=== PATIENT | male | born 1955 | race Caucasian/White ===

== ENCOUNTER 2018-09-20 16:11 | Emergency (ER) | payer MEDICARE ==
--- NOTE | 2018-09-20 17:03 | ED ---
General Adult HPI - General Chief complaint: ENT Stated complaint: hyperglycemia Time Seen by Provider: 09/20/18 16:30 Source: patient, EMS Mode of arrival: EMS Limitations: no limitations - History of Present Illness Initial comments: The patient is a 63-year-old male with past medical history of left second toe osteomyelitis and bladder cancer who presents to the emergency department from his podiatry office. He states that upon walking into the office today he had the sensation that his ears "needed to pop". He has had this sensation multiple times over the past few weeks. He felt as if he couldn't hear and therefore the office staff got acutely concerned for altered mental status. The patient reports that they called EMS even though the patient did not feel this was necessary. EMS arrived and checked the patient's sugar. He was found to be in the 300s. The patient does report to a history of diabetes and is insulin- dependent. He states that he forgot to take his insulin last night. Reports that elevated blood sugars are not abnormal for him. He states that when EMS arrived that his ears did pop and he felt better. He did not want to come to the emergency department and it took several individuals to convince him to come. He is denying any symptoms at this time. States he is completely pain- free. He denies any headaches or visual changes. He denies any unilateral numbness or weakness. There is no slurred speech or facial droop. The patient has had a history of stroke in the past and has no residual deficits. He denies any ear pain or discharge. He denies any sinus pain or pressure. Denies sore throat, neck pain or stiffness. Denies any chest pain or shortness of breath. The patient reports great improvement in his left second toe osteomyelitis. No fevers or chills. There are no other alleviating, precipitating or modifying factors - Related Data Home Medications Medication Instructions Recorded Confirmed ALPRAZolam [Xanax] 1 mg PO HS PRN 11/09/15 09/20/18 traZODone HCL [Desyrel] 300 mg PO HS 11/09/15 09/20/18 ALPRAZolam [Xanax] 0.5 mg PO BID@0900,1900 09/20/18 09/20/18 Atorvastatin [Lipitor] 40 mg PO HS 09/20/18 09/20/18 Doxycycline Hyclate [Vibramycin] 100 mg PO BID 09/20/18 09/20/18 Lisinopril [Prinivil] 5 mg PO DAILY 09/20/18 09/20/18 Metoprolol Succinate [Toprol XL] 200 mg PO DAILY 09/20/18 09/20/18 Omeprazole [PriLOSEC] 20 mg PO DAILY 09/20/18 09/20/18 amLODIPine [Norvasc] 10 mg PO DAILY 09/20/18 09/20/18 Allergies Allergy/AdvReac Type Severity Reaction Status Date / Time No Known Allergies Allergy Verified 09/20/18 17:40 Review of Systems ROS Statement: Those systems with pertinent positive or pertinent negative responses have been documented in the HPI. ROS Other: All systems not noted in ROS Statement are negative. Past Medical History Past Medical History: CVA/TIA, Diabetes Mellitus, GERD/Reflux, Hyperlipidemia, Hypertension, Myocardial Infarction (ME) Additional Past Medical History / Comment(s): cataracts pacemaker History of Any Multi-Drug Resistant Organisms: None Reported Past Surgical History: Cholecystectomy Past Psychological History: No Psychological Hx Reported Smoking Status: Former smoker Past Alcohol Use History: Rare Past Drug Use History: None Reported General Exam Limitations: no limitations General appearance: alert, in no apparent distress Head exam: Present: atraumatic, normocephalic, normal inspection Eye exam: Present: normal appearance, PERRL, EOMI. Absent: scleral icterus, conjunctival injection, periorbital swelling ENT exam: Present: normal exam, mucous membranes moist Neck exam: Present: normal inspection. Absent: tenderness, meningismus, lymphadenopathy Respiratory exam: Present: normal lung sounds bilaterally. Absent: respiratory distress, wheezes, rales, rhonchi, stridor Cardiovascular Exam: Present: regular rate, normal rhythm, normal heart sounds. Absent: systolic murmur, diastolic murmur, rubs, gallop, clicks GI/Abdominal exam: Present: soft, normal bowel sounds, other (b/l percutanous drains from the kidneys are c/d/i). Absent: distended, tenderness, guarding, rebound, rigid Extremities exam: Present: normal inspection, full ROM, normal capillary refill, other (small non-oozing, well healing ulcer to the bottom of the left second toe measuring 1.5 x 1.0 cm). Absent: tenderness, pedal edema, joint swelling, calf tenderness Back exam: Present: normal inspection Neurological exam: Present: alert, oriented X3, CN II-XII intact Psychiatric exam: Present: normal affect, normal mood Skin exam: Present: warm, dry, intact, normal color. Absent: rash Course Vital Signs 09/20/18 09/20/18 16:21 19:59 Temperature 97.4 F L 98.3 F Pulse Rate 79 63 Respiratory 18 17 Rate Blood Pressure 145/64 137/71 O2 Sat by Pulse 98 98 Oximetry EKG Findings - EKG Comments: EKG Findings:: EKG demonstrates atrial fibrillation with a ventricular rate of 72. QRS 134. QTC 473. There is a left axis deviation left bundle branch block. No sgarbossa criteria. Medical Decision Making - Medical Decision Making Upon arrival the patient is placed into room 24. He is hooked up to continuous pulse ox and cardiac monitoring. A thorough history and physical exam was performed. The patient states he feels asymptomatic at this time. He is requesting me to look in his ears as he does report to recent muffled hearing. The patient does not demonstrate any signs of stroke at this time. I did recom mend laboratory studies and an EKG for which the patient did agree. I also recommended CT imaging of the patient's head to evaluate the patient's eustachian tubes. The patient refused and he is of sound mind and capable of making his own decisions. Upon return of the results they're discussed the patient. I did discuss diagnosis, differential and treatment options. I do believe the patient would benefit from seeing an ear nose and throat doctor. Patient continues to remain symptom free and is requesting to go home at this time. Laboratory studies did not demonstrate any signs of DKA. The patient will be discharged home and is given follow-up information for Dr. Suh. He is to follow up in office for his hearing changes. If he has any new or worsening symptoms she should return to the emergency room. Patient was in agreement treatment plan and discharged home in stable condition - Differential Diagnosis acute sinus pressure, acute hyperglycemia - Lab Data Result diagrams: 09/20/18 18:10 09/20/18 18:10 Lab Results 09/20/18 09/20/18 09/20/18 Range/Units 18:10 18:10 18:10 WBC 9.5 (3.8-10.6) k/uL RBC 3.47 L (4.30-5.90) m/uL Hgb 9.8 L (13.0-17.5) gm/dL Hct 30.7 L (39.0-53.0) % MCV 88.6 (80.0-100.0) fL MCH 28.2 (25.0-35.0) pg MCHC 31.9 (31.0-37.0) g/dL RDW 15.8 H (11.5-15.5) % Plt Count 210 (150-450) k/uL Neutrophils % 88 % Lymphocytes % 4 % Monocytes % 5 % Eosinophils % 1 % Basophils % 0 % Neutrophils # 8.4 H (1.3-7.7) k/uL Lymphocytes # 0.4 L (1.0-4.8) k/uL Monocytes # 0.5 (0-1.0) k/uL Eosinophils # 0.1 (0-0.7) k/uL Basophils # 0.0 (0-0.2) k/uL Hypochromasia Slight Sodium 139 (137-145) mmol/L Potassium 4.4 (3.5-5.1) mmol/L Chloride 101 (98-107) mmol/L Carbon Dioxide 29 (22-30) mmol/L Anion Gap 9 mmol/L BUN 20 (9-20) mg/dL Creatinine 1.28 H (0.66-1.25) mg/dL Est GFR (CKD-EPI)AfAm 68 (>60 ml/min/1.73 sqM) Est GFR (CKD-EPI)NonAf 58 (>60 ml/min/1.73 sqM) Glucose 318 H (74-99) mg/dL Plasma Lactic Acid Stan 1.1 (0.7-2.0) mmol/L Calcium 8.6 (8.4-10.2) mg/dL Total Bilirubin 1.1 (0.2-1.3) mg/dL AST 12 L (17-59) U/L ALT 19 L (21-72) U/L Alkaline Phosphatase 128 H (38-126) U/L Total Protein 6.1 L (6.3-8.2) g/dL Albumin 3.4 L (3.5-5.0) g/dL TSH 4.450 (0.465-4.680) mIU/L Urine Color Urine Appearance (Clear) Urine pH (5.0-8.0) Ur Specific Cory (1.001-1.035) Urine Protein (Negative) Urine Glucose (UA) (Negative) Urine Ketones (Negative) Urine Blood (Negative) Urine Nitrite (Negative) Urine Bilirubin (Negative) Urine Urobilinogen (<2.0) mg/dL Ur Leukocyte Esterase (Negative) Urine RBC (0-5) /hpf Urine WBC (0-5) /hpf Urine Bacteria (None) /hpf Hyaline Casts (0-2) /lpf Urine Mucus (None) /hpf 09/20/18 Range/Units 18:10 WBC (3.8-10.6) k/uL RBC (4.30-5.90) m/uL Hgb (13.0-17.5) gm/dL Hct (39.0-53.0) % MCV (80.0-100.0) fL MCH (25.0-35.0) pg MCHC (31.0-37.0) g/dL RDW (11.5-15.5) % Plt Count (150-450) k/uL Neutrophils % % Lymphocytes % % Monocytes % % Eosinophils % % Basophils % % Neutrophils # (1.3-7.7) k/uL Lymphocytes # (1.0-4.8) k/uL Monocytes # (0-1.0) k/uL Eosinophils # (0-0.7) k/uL Basophils # (0-0.2) k/uL Hypochromasia Sodium (137-145) mmol/L Potassium (3.5-5.1) mmol/L Chloride (98-107) mmol/L Carbon Dioxide (22-30) mmol/L Anion Gap mmol/L BUN (9-20) mg/dL Creatinine (0.66-1.25) mg/dL Est GFR (CKD-EPI)AfAm (>60 ml/min/1.73 sqM) Est GFR (CKD-EPI)NonAf (>60 ml/min/1.73 sqM) Glucose (74-99) mg/dL Plasma Lactic Acid Stan (0.7-2.0) mmol/L Calcium (8.4-10.2) mg/dL Total Bilirubin (0.2-1.3) mg/dL AST (17-59) U/L ALT (21-72) U/L Alkaline Phosphatase (38-126) U/L Total Protein (6.3-8.2) g/dL Albumin (3.5-5.0) g/dL TSH (0.465-4.680) mIU/L Urine Color Yellow Urine Appearance Cloudy (Clear) Urine pH 7.0 (5.0-8.0) Ur Specific Cory 1.011 (1.001-1.035) Urine Protein 3+ H (Negative) Urine Glucose (UA) 3+ H (Negative) Urine Ketones Negative (Negative) Urine Blood Moderate H (Negative) Urine Nitrite Negative (Negative) Urine Bilirubin Negative (Negative) Urine Urobilinogen 2.0 (<2.0) mg/dL Ur Leukocyte Esterase Moderate H (Negative) Urine RBC 103 H (0-5) /hpf Urine WBC 24 H (0-5) /hpf Urine Bacteria Rare H (None) /hpf Hyaline Casts 1 (0-2) /lpf Urine Mucus Rare H (None) /hpf Disposition Clinical Impression: Sinus pressure, Hyperglycemia Disposition: HOME SELF-CARE Condition: Stable Instructions (If sedation given, give patient instructions): Earache (ED) Additional Instructions: Please follow-up with your primary care doctor in 1-2 days. Check your sugars 4 times daily. Return to the emergency room for any new or worsening symptoms Is patient prescribed a controlled substance at d/c from ED?: No Referrals: Narendra Izquierdo MD [Primary Care Provider] - 1-2 days Juan Luis Suh MD [STAFF PHYSICIAN] - 1-2 days Time of Disposition: 19:20
[2018-09-20 18:23] LABS: Basophils % (A) 0 %; Eosinophils # (A) 0.1 k/uL (0-0.7); Eosinophils % (A) 1 %; HCT 30.7 % (39.0-53.0); HGB 9.8 gm/dL (13.0-17.5); Hypochromasia Slight; Lymphocytes # (A) 0.4 k/uL (1.0-4.8); Lymphocytes % (A) 4 %; MCH 28.2 pg (25.0-35.0); MCHC 31.9 g/dL (31.0-37.0); MCV 88.6 fL (80.0-100.0); Monocytes # (A) 0.5 k/uL (0-1.0); Monocytes % (A) 5 %; Neutrophils # (A) 8.4 k/uL (1.3-7.7); Neutrophils % (A) 88 %; Platelet Count 210 k/uL (150-450); RBC 3.47 m/uL (4.30-5.90); RDW 15.8 % (11.5-15.5); WBC 9.5 k/uL (3.8-10.6)
[2018-09-20 18:31] LABS: Albumin 3.4 g/dL (3.5-5.0); Calcium 8.6 mg/dL (8.4-10.2); Potassium 4.4 mmol/L (3.5-5.1); Total Bilirubin 1.1 mg/dL (0.2-1.3); Total Protein 6.1 g/dL (6.3-8.2)
[2018-09-20 18:35] LABS: Appearance,Urine Cloudy (Clear); Bacteria,Urine Rare /hpf; Bilirubin,Urine Negative (Negative); Blood,Urine Moderate (Negative); Color,Urine Yellow; Glucose,Urine (UA) 3+ (Negative); Hyaline Casts,Urine 1 /lpf (0-2); Ketones,Urine Negative (Negative); Leukocyte Esterase,Urine Moderate (Negative); Mucus,Urine Rare /hpf; Nitrite,Urine Negative (Negative); Protein,Urine 3+ (Negative); RBC,Urine 103 /hpf (0-5); Specific Gravity,Urine 1.011 (1.001-1.035); WBC,Urine 24 /hpf (0-5)
[2018-09-20 20:00] VITALS: BP 137/71; PULSE 63; RESP 17; TEMP 98.3
== END 2018-09-20 20:00 | disposition home or self-care (01) ==
LOC: EC 16:11
DX: E11.65 Type 2 diabetes mellitus with hyperglycemia (principal); J34.89 Other specified disorders of nose and nasal sinuses; E11.69 Type 2 diabetes mellitus with other specified complication; M86.9 Osteomyelitis, unspecified; K21.9 Gastro-esophageal reflux disease without esophagitis; E78.5 Hyperlipidemia, unspecified; I10 Essential (primary) hypertension; I25.2 Old myocardial infarction; Z87.891 Personal history of nicotine dependence; Z79.4 Long term (current) use of insulin; Z79.899 Other long term (current) drug therapy; Z85.51 Personal history of malignant neoplasm of bladder; Z86.73 Personal history of transient ischemic attack (TIA), and cerebral infarction without residual deficits; Z95.0 Presence of cardiac pacemaker; Z53.20 Procedure and treatment not carried out because of patient's decision for unspecified reasons
CPT/HCPCS: 36415; 80053; 81001; 83605; 84443; 85025; 93005; 99285

== ENCOUNTER 2018-11-04 11:52 | Inpatient (IN) | payer MEDICARE ==
[2018-11-04] MEDS ORDERED: ACETAMINOPHEN TAB 500 MG TAB PO STA (12:12)
[2018-11-04] MEDS ORDERED: IBUPROFEN 600 MG TAB PO STA (12:12)
--- NOTE | 2018-11-04 12:16 | ED ---
General Adult HPI - General Chief complaint: Fever Stated complaint: HYPOTENSION Time Seen by Provider: 11/04/18 12:00 Source: patient, EMS, RN notes reviewed Mode of arrival: EMS Limitations: no limitations - History of Present Illness Initial comments: This is a 63-year-old male who has a past medical history significant for bladder cancer and bilateral nephrostomy tubes. Patient was at home and according to the visiting nurse was confused and weak and he got up and it even realize the nephrostomy tube was caught and pulled right out on the right side. Patient is alert and oriented 3 but he is somewhat slow to respond it is not 100% sure why he is here. Patient does have a temperature. Patient denies any complaints currently. Patient denies headache patient denies numbness weakness. Patient denies chest pain difficult breathing shortness of breath per patient denies any abdominal pain. Patient denies nausea vomiting diarrhea. Patient states he does not want back [facility]. Patient was unaware that he had a temperature. No one else is with the patient to give any further history. - Related Data Home Medications Medication Instructions Recorded Confirmed traZODone HCL [Desyrel] 300 mg PO HS 11/09/15 11/04/18 ALPRAZolam [Xanax] 0.5 mg PO TID 09/20/18 11/04/18 Atorvastatin [Lipitor] 40 mg PO HS 09/20/18 11/04/18 Metoprolol Succinate [Toprol XL] 200 mg PO DAILY 09/20/18 11/04/18 Omeprazole [PriLOSEC] 20 mg PO DAILY 09/20/18 11/04/18 amLODIPine [Norvasc] 10 mg PO DAILY 09/20/18 11/04/18 Acetaminophen Tab [Tylenol Tab] 650 mg PO Q6H PRN 11/04/18 11/04/18 Aspirin EC [Ecotrin Low Dose] 81 mg PO DAILY 11/04/18 11/04/18 Docusate [Colace] 100 mg PO DAILY PRN 11/04/18 11/04/18 Enoxaparin Sodium 100 mg SQ DAILY 11/04/18 11/04/18 INSULIN LISPRO (HumaLOG) [HumaLOG] See Protocol SQ AC-TID 11/04/18 11/04/18 Insulin Glargine [Lantus] 15 unit SQ HS 11/04/18 11/04/18 Magnesium Oxide [Mag-Ox] 400 mg PO BID 11/04/18 11/04/18 Mesalamine [Canasa] 1,000 mg RECTAL BID 11/04/18 11/04/18 Nitroglycerin Sl Tabs [Nitrostat] 0.4 mg SUBLINGUAL Q5M PRN 11/04/18 11/04/18 Nutrisource Fiber 4 gram PO BID 11/04/18 11/04/18 Allergies Allergy/AdvReac Type Severity Reaction Status Date / Time No Known Allergies Allergy Verified 11/04/18 12:32 Review of Systems ROS Statement: Those systems with pertinent positive or pertinent negative responses have been documented in the HPI. ROS Other: All systems not noted in ROS Statement are negative. Past Medical History Past Medical History: CVA/TIA, Diabetes Mellitus, GERD/Reflux, Hyperlipidemia, Hypertension, Myocardial Infarction (SD) Additional Past Medical History / Comment(s): cataracts pacemaker History of Any Multi-Drug Resistant Organisms: None Reported Past Surgical History: Cholecystectomy, Pacemaker Additional Past Surgical History / Comment(s): nephrostomy tube x2 Past Psychological History: No Psychological Hx Reported Smoking Status: Former smoker Past Alcohol Use History: Rare Past Drug Use History: None Reported General Exam - General Exam Comments Initial Comments: GENERAL: Patient is well-developed and well-nourished. Patient is nontoxic and well- hydrated and is in mild distress. ENT: Neck is soft and supple. No significant lymphadenopathy is noted. Oropharynx is clear. Moist mucous membranes. Neck has full range of motion without eliciting any pain. EYES: The sclera were anicteric and conjunctiva were pink and moist. Extraocular movements were intact and pupils were equal round and reactive to light. Eyelids were unremarkable. PULMONARY: Unlabored respirations. Good breath sounds bilaterally. No audible rales rhonchi or wheezing was noted. CARDIOVASCULAR: There is a regular rate and rhythm without any murmurs gallops or rubs. ABDOMEN: Soft and nontender with normal bowel sounds. No palpable organomegaly was noted. There is no palpable pulsatile mass. SKIN: Skin is clear with no lesions or rashes and otherwise unremarkable. Patient has an opening on the right for nephrostomy tube which is no longer in place NEUROLOGIC: Patient is alert and oriented x3 but is slow to respond.. Cranial nerves II through XII are grossly intact. Motor and sensory are also intact. Normal speech, volume and content. Symmetrical smile. MUSCULOSKELETAL: Normal extremities with adequate strength and full range of motion. LYMPHATICS: No significant lymphadenopathy is noted PSYCHIATRIC: Normal psychiatric evaluation. Limitations: no limitations Course Vital Signs 11/04/18 11/04/18 11/04/18 12:04 13:33 14:13 Temperature 101.2 F H 99.6 F Pulse Rate 74 59 L 70 Respiratory 18 16 18 Rate Blood Pressure 144/72 116/68 112/78 O2 Sat by Pulse 96 8 L 96 Oximetry Medical Decision Making - Medical Decision Making Patient's ideal body weight for his height is 90 kg. EKG shows atrial fibrillation versus flutter with a couple PVCs at a rate of 83 bpm QRS is 132 QT interval 440 QTC is 517. Patient's EKG shows no ST segment elevation or depression. I gave the patient Rocephin. I spoke with Dr. Sanchez he agreed to admit the patient admitted the patient wrote admitting orders. Patient also received 2 L of fluid in the emergency department and I ordered a third. I spoke with Dr. Diallo and he agreed that he could replace the nephrostomy tube. I spoke with Dr. Falk and he agreed he could be on consult. - Lab Data Result diagrams: 11/04/18 12:35 11/04/18 12:35 Lab Results 11/04/18 11/04/18 11/04/18 Range/Units 12:35 12:35 12:35 WBC 14.2 H (3.8-10.6) k/uL RBC 3.86 L (4.30-5.90) m/uL Hgb 10.8 L (13.0-17.5) gm/dL Hct 30.8 L (39.0-53.0) % MCV 79.7 L D (80.0-100.0) fL MCH 28.0 (25.0-35.0) pg MCHC 35.1 (31.0-37.0) g/dL RDW 15.0 (11.5-15.5) % Plt Count 181 (150-450) k/uL Neutrophils % 93 % Lymphocytes % 2 % Monocytes % 4 % Eosinophils % 0 % Basophils % 1 % Neutrophils # 13.2 H (1.3-7.7) k/uL Lymphocytes # 0.2 L (1.0-4.8) k/uL Monocytes # 0.6 (0-1.0) k/uL Eosinophils # 0.1 (0-0.7) k/uL Basophils # 0.1 (0-0.2) k/uL Poikilocytosis Slight PT (9.0-12.0) sec INR (<1.2) APTT (22.0-30.0) sec Sodium 135 L (137-145) mmol/L Potassium 3.0 L (3.5-5.1) mmol/L Chloride 96 L (98-107) mmol/L Carbon Dioxide 26 (22-30) mmol/L Anion Gap 13 mmol/L BUN 17 (9-20) mg/dL Creatinine 1.36 H (0.66-1.25) mg/dL Est GFR (CKD-EPI)AfAm 63 (>60 ml/min/1.73 sqM) Est GFR (CKD-EPI)NonAf 54 (>60 ml/min/1.73 sqM) Glucose 354 H (74-99) mg/dL Plasma Lactic Acid Stan 1.5 (0.7-2.0) mmol/L Calcium 7.8 L (8.4-10.2) mg/dL Total Bilirubin 1.6 H (0.2-1.3) mg/dL AST 14 L (17-59) U/L ALT 15 L (21-72) U/L Alkaline Phosphatase 204 H (38-126) U/L Troponin I (0.000-0.034) ng/mL Total Protein 5.9 L (6.3-8.2) g/dL Albumin 3.1 L (3.5-5.0) g/dL Urine Color Urine Appearance (Clear) Urine pH (5.0-8.0) Ur Specific Dillon (1.001-1.035) Urine Protein (Negative) Urine Glucose (UA) (Negative) Urine Ketones (Negative) Urine Blood (Negative) Urine Nitrite (Negative) Urine Bilirubin (Negative) Urine Urobilinogen (<2.0) mg/dL Ur Leukocyte Esterase (Negative) Urine RBC (0-5) /hpf Urine WBC (0-5) /hpf Urine WBC Clumps (None) /hpf Urine Bacteria (None) /hpf Hyaline Casts (0-2) /lpf Urine Mucus (None) /hpf Ur Yeast w Hyphae (None) /hpf Urine Yeast (Budding) (None) /hpf Influenza Type A RNA (Not Detectd) Influenza Type B (PCR) (Not Detectd) 11/04/18 11/04/18 11/04/18 Range/Units 12:35 12:35 12:35 WBC (3.8-10.6) k/uL RBC (4.30-5.90) m/uL Hgb (13.0-17.5) gm/dL Hct (39.0-53.0) % MCV (80.0-100.0) fL MCH (25.0-35.0) pg MCHC (31.0-37.0) g/dL RDW (11.5-15.5) % Plt Count (150-450) k/uL Neutrophils % % Lymphocytes % % Monocytes % % Eosinophils % % Basophils % % Neutrophils # (1.3-7.7) k/uL Lymphocytes # (1.0-4.8) k/uL Monocytes # (0-1.0) k/uL Eosinophils # (0-0.7) k/uL Basophils # (0-0.2) k/uL Poikilocytosis PT 14.5 H (9.0-12.0) sec INR 1.4 H (<1.2) APTT 29.8 (22.0-30.0) sec Sodium (137-145) mmol/L Potassium (3.5-5.1) mmol/L Chloride (98-107) mmol/L Carbon Dioxide (22-30) mmol/L Anion Gap mmol/L BUN (9-20) mg/dL Creatinine (0.66-1.25) mg/dL Est GFR (CKD-EPI)AfAm (>60 ml/min/1.73 sqM) Est GFR (CKD-EPI)NonAf (>60 ml/min/1.73 sqM) Glucose (74-99) mg/dL Plasma Lactic Acid Stan (0.7-2.0) mmol/L Calcium (8.4-10.2) mg/dL Total Bilirubin (0.2-1.3) mg/dL AST (17-59) U/L ALT (21-72) U/L Alkaline Phosphatase (38-126) U/L Troponin I 0.072 H* (0.000-0.034) ng/mL Total Protein (6.3-8.2) g/dL Albumin (3.5-5.0) g/dL Urine Color Yellow Urine Appearance Cloudy (Clear) Urine pH 6.0 (5.0-8.0) Ur Specific Dillon 1.015 (1.001-1.035) Urine Protein 2+ H (Negative) Urine Glucose (UA) 1+ H (Negative) Urine Ketones 1+ H (Negative) Urine Blood Small H (Negative) Urine Nitrite Negative (Negative) Urine Bilirubin Negative (Negative) Urine Urobilinogen 4.0 (<2.0) mg/dL Ur Leukocyte Esterase Large H (Negative) Urine RBC 47 H (0-5) /hpf Urine WBC 73 H (0-5) /hpf Urine WBC Clumps Rare H (None) /hpf Urine Bacteria Occasional H (None) /hpf Hyaline Casts 32 H (0-2) /lpf Urine Mucus Rare H (None) /hpf Ur Yeast w Hyphae Occasional (None) /hpf Urine Yeast (Budding) Few H (None) /hpf Influenza Type A RNA (Not Detectd) Influenza Type B (PCR) (Not Detectd) 11/04/18 Range/Units 12:35 WBC (3.8-10.6) k/uL RBC (4.30-5.90) m/uL Hgb (13.0-17.5) gm/dL Hct (39.0-53.0) % MCV (80.0-100.0) fL MCH (25.0-35.0) pg MCHC (31.0-37.0) g/dL RDW (11.5-15.5) % Plt Count (150-450) k/uL Neutrophils % % Lymphocytes % % Monocytes % % Eosinophils % % Basophils % % Neutrophils # (1.3-7.7) k/uL Lymphocytes # (1.0-4.8) k/uL Monocytes # (0-1.0) k/uL Eosinophils # (0-0.7) k/uL Basophils # (0-0.2) k/uL Poikilocytosis PT (9.0-12.0) sec INR (<1.2) APTT (22.0-30.0) sec Sodium (137-145) mmol/L Potassium (3.5-5.1) mmol/L Chloride (98-107) mmol/L Carbon Dioxide (22-30) mmol/L Anion Gap mmol/L BUN (9-20) mg/dL Creatinine (0.66-1.25) mg/dL Est GFR (CKD-EPI)AfAm (>60 ml/min/1.73 sqM) Est GFR (CKD-EPI)NonAf (>60 ml/min/1.73 sqM) Glucose (74-99) mg/dL Plasma Lactic Acid Stan (0.7-2.0) mmol/L Calcium (8.4-10.2) mg/dL Total Bilirubin (0.2-1.3) mg/dL AST (17-59) U/L ALT (21-72) U/L Alkaline Phosphatase (38-126) U/L Troponin I (0.000-0.034) ng/mL Total Protein (6.3-8.2) g/dL Albumin (3.5-5.0) g/dL Urine Color Urine Appearance (Clear) Urine pH (5.0-8.0) Ur Specific Dillon (1.001-1.035) Urine Protein (Negative) Urine Glucose (UA) (Negative) Urine Ketones (Negative) Urine Blood (Negative) Urine Nitrite (Negative) Urine Bilirubin (Negative) Urine Urobilinogen (<2.0) mg/dL Ur Leukocyte Esterase (Negative) Urine RBC (0-5) /hpf Urine WBC (0-5) /hpf Urine WBC Clumps (None) /hpf Urine Bacteria (None) /hpf Hyaline Casts (0-2) /lpf Urine Mucus (None) /hpf Ur Yeast w Hyphae (None) /hpf Urine Yeast (Budding) (None) /hpf Influenza Type A RNA Not Detected (Not Detectd) Influenza Type B (PCR) Not Detected (Not Detectd) Critical Care Time Critical Care Time: Yes Total Critical Care Time: 35 Disposition Clinical Impression: Sepsis, Urinary tract infection, Weakness Disposition: [facility] Referrals: Narendra Izquierdo MD [Primary Care Provider] - 1-2 days Time of Disposition: 14:42
[2018-11-04] MEDS: SODIUM CHLORIDE 0.9% 500 ML 500 ML IV SCH ×3 (12:51→13:39)
[2018-11-04 12:59] LABS: Albumin 3.1 g/dL (3.5-5.0); Calcium 7.8 mg/dL (8.4-10.2); Total Bilirubin 1.6 mg/dL (0.2-1.3); Total Protein 5.9 g/dL (6.3-8.2)
[2018-11-04 13:00] LABS: INR 1.4 (<1.2); Partial Thromboplastin Time 29.8 sec (22.0-30.0); Prothrombin Time 14.5 sec (9.0-12.0)
[2018-11-04 13:07] LABS: Appearance,Urine Cloudy (Clear); Bacteria,Urine Occasional /hpf; Bilirubin,Urine Negative (Negative); Blood,Urine Small (Negative); Budding Yeast,Urine Few /hpf; Color,Urine Yellow; Glucose,Urine (UA) 1+ (Negative); Hyaline Casts,Urine 32 /lpf (0-2); Hyphae Yeast, Urine Occasional /hpf; Ketones,Urine 1+ (Negative); Leukocyte Esterase,Urine Large (Negative); Mucus,Urine Rare /hpf; Nitrite,Urine Negative (Negative); Protein,Urine 2+ (Negative); RBC,Urine 47 /hpf (0-5); Specific Gravity,Urine 1.015 (1.001-1.035)
[2018-11-04 13:10] LABS: Basophils # (A) 0.1 k/uL (0-0.2); Basophils % (A) 1 %; Eosinophils # (A) 0.1 k/uL (0-0.7); Eosinophils % (A) 0 %; HCT 30.8 % (39.0-53.0); HGB 10.8 gm/dL (13.0-17.5); Lymphocytes # (A) 0.2 k/uL (1.0-4.8); Lymphocytes % (A) 2 %; MCHC 35.1 g/dL (31.0-37.0); Mean Platelet Volume 7.3; Monocytes # (A) 0.6 k/uL (0-1.0); Monocytes % (A) 4 %; Neutrophils # (A) 13.2 k/uL (1.3-7.7); Neutrophils % (A) 93 %; Platelet Count 181 k/uL (150-450); Poikilocytosis Slight; RBC 3.86 m/uL (4.30-5.90); WBC 14.2 k/uL (3.8-10.6)
[2018-11-04 13:12] LABS: MCV 79.7 fL (80.0-100.0)
--- NOTE | 2018-11-04 13:23 | XR ---
EXAMINATION TYPE: XR chest 2V DATE OF EXAM: 11/04/2018 COMPARISON: None HISTORY: 63-year-old male with fever TECHNIQUE: AP and lateral views FINDINGS: Heart upper limits of normal in size. Median sternotomy wires with postoperative clips in the mediast inum. Mild interstitial prominence has a chronic appearance. No consolidation or pleural effusion. DI SH within the thoracic spine. IMPRESSION: Borderline heart size. Chronic appearing changes without acute process seen.
[2018-11-04] MEDS ORDERED: SODIUM CHLORIDE 0.9% 1,000 ML IV ONE (14:42)
[2018-11-04] MEDS ORDERED: SODIUM CHLORIDE 0.9% 250 ML IV ONE (16:00)
[2018-11-04 17:06] LABS: Glucose,Whole Blood 348 mg/dL (75-99)
[2018-11-04] MEDS ORDERED: NITROGLYCERIN SL TABS 0.4 MG TAB SUBLINGUAL PRN (18:15)
[2018-11-04] MEDS ORDERED: DOCUSATE 100 MG CAP PO PRN (18:15)
[2018-11-04] MEDS ORDERED: INSULIN ASPART (NovoLOG) 100 UNIT/ML VIAL SQ SCH (18:19)
[2018-11-04] MEDS ORDERED: INSULIN ASPART (NovoLOG) 100 UNIT/ML VIAL SQ ONE (18:45)
[2018-11-04] MEDS ORDERED: INSULIN DETEMIR (LEVEMIR) 100 UNIT/ML SYR SQ SCH (21:00)
--- NOTE | 2018-11-04 21:14 | HP ---
HISTORY AND PHYSICAL DATE OF SERVICE: 11/04/2018. CHIEF COMPLAINTS: Fever. Slipped right nephrostomy tube. HISTORY OF PRESENT ILLNESS: This 63-year-old gentleman with a past medical history of multiple medical problems including bladder cancer, history of diabetes, GERD, hypertension hyperlipidemia, cholecystectomy, history of CVA, TIA, being followed by [facility] in [place] and Dr. La in the outpatient setting apparently obtaining treatment from the [facility] for bladder cancer. The patient currently had bilateral nephrostomy tubes and patient has been planned for further evaluation including possible treatment and surgery. The patient today had fever. Patient also had confusion. Patient himself. The patient found to have the right nephrostomy tube slipped out and the patient came to [facility] and was admitted to the hospital for further evaluation and treatment. The nephrostomy tube was replaced. Otherwise, there is no history of fever, rigors or chills. No history of headache, loss of consciousness or seizures. The patient is mildly confused. PAST MEDICAL HISTORY: Past medical history of CVA, TIA, diabetes type 2, GERD, hypertension, hyperlipidemia, history of myocardial infarction, history of cataracts, cholecystectomy, pacemaker. MEDICATIONS: 1. Desyrel 300 mg q.h.s. 2. Prilosec 20 mg p.o. daily. 3. Colace 100 mg daily p.r.n. 4. Nitrostat 0.4 sublingual p.r.n. 5. Toprol-XL 200 mg daily. 6. Humalog a.c. t.i.d. 7. Nutrisource fiber 4 g p.o. b.i.d. 8. Norvasc 10 mg. 9. Lipitor 40 mg q.h.s. 10.Ecotrin 81 mg. 11.Xanax 0.5 b.i.d. 12.Lantus 50 units subcu q.h.s. 13.Tylenol p.r.n. 14.Lovenox 100 mg subcu daily. 15.mesalamine 1000 mg topically b.i.d. 16.Magnesium oxide 400 mg b.i.d. ALLERGIES: None. FAMILY HISTORY: No history of heart disease or strokes in the family. SOCIAL HISTORY: Previous history of smoking. No history of current smoking or alcohol. REVIEW OF SYSTEMS: Could not be taken as the patient is mildly confused. PHYSICAL EXAM: Patient is conscious but confused. Pulse 62, blood pressure 118/56. Respirations 16. Temperature normal. Pulse ox 96% on room air. HEENT: Conjunctivae normal. Oral mucosa moist. NECK is no jugular venous distention. No carotid bruit. No lymph node enlargement. Cardiovascular system: S1, S2 muffled. RESPIRATORY: Breath sounds diminished in the bases. A few scattered rhonchi and crackles. ABDOMEN: Soft, nontender. No mass palpable. LEGS no edema. No swelling. NERVOUS SYSTEM: Higher functions as mentioned earlier. Moves all four limbs. No focal motor or sensory deficits. LYMPHATICS: No lymph nodes palpable in the neck, axillae or groin. SKIN: No ulcer, no rashes and no bleeding. JOINTS: No active deforming arthropathy. LABS: WBC 14.2, hemoglobin 10.8. Sodium 130, potassium 3, glucose 354. Troponin 0.072. Influenza negative. ASSESSMENT: 1. Acute urinary tract infection with sepsis. 2. Slipped right nephrostomy tube reinserted. 3. Bilateral nephrostomy for possible obstructive uropathy secondary to bladder cancer. 4. History of recent bladder cancer being treated in [facility]. 5. Increased WBC. 6. Anemia, normocytic. 7. Hyponatremia. 8. Hypokalemia. 9. Troponin 0.072 of indeterminate origin. 10.Diabetes mellitus type 2. 11.Gastroesophageal reflux disease. 12.Hypertension. 13.History of hyperlipidemia. 14.History of myocardial infarction. 15.History of cataracts. 16.History of cholecystectomy. 17.History of nephrostomy tube x2. 18.Permanent pacemaker. RECOMMENDATIONS AND DISCUSSION: This 63-year-old gentleman who presented with multiple complex medical issues, we will monitor the patient closely. Continue the current medications, management and symptomatic treatment. Otherwise, I recommend follow the patient closely. Empiric antibiotics. Urology evaluation. I would also recommend infectious disease evaluation. Guarded prognosis because of multiple complex medical issues. Further recommendations to follow. A copy of this dictation being forwarded to [facility] for a followup. Home medications will be continued. MMODL / IJN: [id number] / MTDD
[2018-11-04 21:19] LABS: Glucose,Whole Blood 350 mg/dL (75-99)
[2018-11-04] MEDS: ATORVASTATIN 40 MG TAB PO SCH (22:09)
[2018-11-04] MEDS: MAGNESIUM OXIDE 400 MG TAB PO SCH (22:09)
[2018-11-04] MEDS: INSULIN DETEMIR (LEVEMIR) 100 UNIT/ML SYR SQ SCH (22:09)
[2018-11-04] MEDS: MESALAMINE 1,000 MG SUPP RECTAL SCH (22:10)
[2018-11-04] MEDS: INSULIN ASPART (NovoLOG) 100 UNIT/ML VIAL SQ SCH (22:10)
[2018-11-05 05:57] LABS: Glucose,Whole Blood 226 mg/dL (75-99)
[2018-11-05 06:04] LABS: Basophils % (A) 0 %; Eosinophils % (A) 0 %; HCT 27.1 % (39.0-53.0); HGB 9.3 gm/dL (13.0-17.5); Lymphocytes # (A) 0.2 k/uL (1.0-4.8); Lymphocytes % (A) 2 %; MCH 27.4 pg (25.0-35.0); MCHC 34.3 g/dL (31.0-37.0); MCV 79.9 fL (80.0-100.0); Monocytes # (A) 0.5 k/uL (0-1.0); Monocytes % (A) 4 %; Neutrophils # (A) 11.4 k/uL (1.3-7.7); Neutrophils % (A) 93 %; Platelet Count 151 k/uL (150-450); Poikilocytosis Slight; RDW 14.9 % (11.5-15.5); WBC 12.2 k/uL (3.8-10.6)
[2018-11-05 06:11] LABS: Calcium 7.5 mg/dL (8.4-10.2)
[2018-11-05] MEDS: PANTOPRAZOLE 40 MG TABLET PO SCH (06:33)
[2018-11-05] MEDS: INSULIN ASPART (NovoLOG) 100 UNIT/ML VIAL SQ SCH ×4 (06:34→21:01)
[2018-11-05 06:40] LABS: Potassium 2.7 mmol/L (3.5-5.1)
[2018-11-05] MEDS ORDERED: PANTOPRAZOLE 40 MG TABLET PO SCH (07:30)
[2018-11-05] MEDS: amLODIPine 10 MG TAB PO SCH (08:20)
[2018-11-05] MEDS: MAGNESIUM OXIDE 400 MG TAB PO SCH ×2 (08:20→21:06)
[2018-11-05] MEDS: METOPROLOL SUCCINATE (ER) 100 MG TAB.ER.24H PO SCH (08:20)
[2018-11-05] MEDS: ENOXAPARIN 100 MG/ML SYRINGE SQ SCH (08:20)
[2018-11-05] MEDS: ASPIRIN 81 MG PO SCH (08:20)
[2018-11-05] MEDS: MESALAMINE 1,000 MG SUPP RECTAL SCH ×2 (08:21→21:02)
[2018-11-05] MEDS: 0.9% NACL WITH KCL 40 MEQ/L 1,000 ML IV SCH ×2 (08:21)
[2018-11-05] MEDS ORDERED: Potassium Replacement Protocol 1 EACH MISC MISCELLANE PRN ×3 (08:23→19:33)
[2018-11-05] MEDS: ACETAMINOPHEN TAB 325 MG TAB PO PRN ×2 (08:26→21:07)
--- NOTE | 2018-11-05 09:08 | P.GSCN ---
History of Present Illness Consult date: 11/05/18 Reason for Consult: Bladder cancer, nephrostomy tube management Requesting physician: Ariel Rivas History of present illness: The patient is a 63-year-old white male known to Dr. Ba. He was diagnosed with high-grade muscle invasive urothelial carcinoma in July 2018. He was noted to have left hydronephrosis at that time. He was referred to [facility] for management. He underwent bilateral nephrostomy tube placement. The plan is for him to receive neoadjuvant chemotherapy prior to undergoing a cy stoprostatectomy. He has not yet seen a local medical oncologist; he had an appointment yesterday but was unable to keep the appointment because he was confused at home and a visiting nurse noted that his right nephrostomy tube was dislodged. There was also a questionable fever. He presented to the emergency room yesterday and was admitted. He underwent right nephrostomy tube replacement by interventional radiology. He currently denies any specific complaints. He has been afebrile since admission. Review of Systems - Constitutional Reports fever - Respiratory Reports dyspnea - Genitourinary Denies hematuria Past Medical History Past Medical History: CVA/TIA, Diabetes Mellitus, GERD/Reflux, Hyperlipidemia, Hypertension, Myocardial Infarction ([place]) Additional Past Medical History / Comment(s): cataracts pacemaker Last Myocardial Infarction Date:: 1996 History of Any Multi-Drug Resistant Organisms: None Reported Past Surgical History: Cholecystectomy, Pacemaker Additional Past Surgical History / Comment(s): nephrostomy tube x2 Type of Cardiac Device: Permanent Pacemaker Device Placement Date:: 2013 Past Psychological History: No Psychological Hx Reported Smoking Status: Former smoker Past Alcohol Use History: Rare Past Drug Use History: None Reported Medications and Allergies Home Medications Medication Instructions Recorded Confirmed Type traZODone HCL [Desyrel] 300 mg PO HS 11/09/15 11/04/18 History ALPRAZolam [Xanax] 0.5 mg PO TID 09/20/18 11/04/18 History Atorvastatin [Lipitor] 40 mg PO HS 09/20/18 11/04/18 History Metoprolol Succinate [Toprol XL] 200 mg PO DAILY 09/20/18 11/04/18 History Omeprazole [PriLOSEC] 20 mg PO DAILY 09/20/18 11/04/18 History amLODIPine [Norvasc] 10 mg PO DAILY 09/20/18 11/04/18 History Acetaminophen Tab [Tylenol Tab] 650 mg PO Q6H PRN 11/04/18 11/04/18 History Aspirin EC [Ecotrin Low Dose] 81 mg PO DAILY 11/04/18 11/04/18 History Docusate [Colace] 100 mg PO DAILY PRN 11/04/18 11/04/18 History Enoxaparin Sodium 100 mg SQ DAILY 11/04/18 11/04/18 History INSULIN LISPRO (HumaLOG) [HumaLOG] See Protocol SQ AC-TID 11/04/18 11/04/18 History Insulin Glargine [Lantus] 15 unit SQ HS 11/04/18 11/04/18 History Magnesium Oxide [Mag-Ox] 400 mg PO BID 11/04/18 11/04/18 History Mesalamine [Canasa] 1,000 mg RECTAL BID 11/04/18 11/04/18 History Nitroglycerin Sl Tabs [Nitrostat] 0.4 mg SUBLINGUAL Q5M PRN 11/04/18 11/04/18 History Nutrisource Fiber 4 gram PO BID 11/04/18 11/04/18 History Allergies Allergy/AdvReac Type Severity Reaction Status Date / Time No Known Allergies Allergy Verified 11/04/18 12:32 Surgical - Exam Vital Signs Pulse Ox 90 L 11/04/18 11:58 - General well developed, well nourished, no distress - Respiratory other (Breathing is somewhat labored) - Abdomen Abdomen: soft, non tender, no guarding, no rigid, no rebound - Genitourinary normal penis with no external lesions, testicles non-tender - Psychiatric oriented to time, oriented to person, oriented to place, speech is normal, rashel ry intact Results - Labs 11/05/18 05:37 11/05/18 05:37 Abnormal Lab Results - Last 24 Hours (Table) 11/04/18 11/04/18 11/04/18 Range/Units 12:35 12:35 12:35 WBC 14.2 H (3.8-10.6) k/uL RBC 3.86 L (4.30-5.90) m/uL Hgb 10.8 L (13.0-17.5) gm/dL Hct 30.8 L (39.0-53.0) % MCV 79.7 L D (80.0-100.0) fL Neutrophils # 13.2 H (1.3-7.7) k/uL Lymphocytes # 0.2 L (1.0-4.8) k/uL PT 14.5 H (9.0-12.0) sec INR 1.4 H (<1.2) Sodium 135 L (137-145) mmol/L Potassium 3.0 L (3.5-5.1) mmol/L Chloride 96 L (98-107) mmol/L BUN (9-20) mg/dL Creatinine 1.36 H (0.66-1.25) mg/dL Glucose 354 H (74-99) mg/dL POC Glucose (mg/dL) (75-99) mg/dL Calcium 7.8 L (8.4-10.2) mg/dL Total Bilirubin 1.6 H (0.2-1.3) mg/dL AST 14 L (17-59) U/L ALT 15 L (21-72) U/L Alkaline Phosphatase 204 H (38-126) U/L Troponin I (0.000-0.034) ng/mL Total Protein 5.9 L (6.3-8.2) g/dL Albumin 3.1 L (3.5-5.0) g/dL Urine Protein (Negative) Urine Glucose (UA) (Negative) Urine Ketones (Negative) Urine Blood (Negative) Ur Leukocyte Esterase (Negative) Urine RBC (0-5) /hpf Urine WBC (0-5) /hpf Urine WBC Clumps (None) /hpf Urine Bacteria (None) /hpf Hyaline Casts (0-2) /lpf Urine Mucus (None) /hpf Urine Yeast (Budding) (None) /hpf 11/04/18 11/04/18 11/04/18 Range/Units 12:35 12:35 17:04 WBC (3.8-10.6) k/uL RBC (4.30-5.90) m/uL Hgb (13.0-17.5) gm/dL Hct (39.0-53.0) % MCV (80.0-100.0) fL Neutrophils # (1.3-7.7) k/uL Lymphocytes # (1.0-4.8) k/uL PT (9.0-12.0) sec INR (<1.2) Sodium (137-145) mmol/L Potassium (3.5-5.1) mmol/L Chloride (98-107) mmol/L BUN (9-20) mg/dL Creatinine (0.66-1.25) mg/dL Glucose (74-99) mg/dL POC Glucose (mg/dL) 348 H (75-99) mg/dL Calcium (8.4-10.2) mg/dL Total Bilirubin (0.2-1.3) mg/dL AST (17-59) U/L ALT (21-72) U/L Alkaline Phosphatase (38-126) U/L Troponin I 0.072 H* (0.000-0.034) ng/mL Total Protein (6.3-8.2) g/dL Albumin (3.5-5.0) g/dL Urine Protein 2+ H (Negative) Urine Glucose (UA) 1+ H (Negative) Urine Ketones 1+ H (Negative) Urine Blood Small H (Negative) Ur Leukocyte Esterase Large H (Negative) Urine RBC 47 H (0-5) /hpf Urine WBC 73 H (0-5) /hpf Urine WBC Clumps Rare H (None) /hpf Urine Bacteria Occasional H (None) /hpf Hyaline Casts 32 H (0-2) /lpf Urine Mucus Rare H (None) /hpf Urine Yeast (Budding) Few H (None) /hpf 11/04/18 11/05/18 11/05/18 Range/Units 21:18 05:37 05:37 WBC 12.2 H (3.8-10.6) k/uL RBC 3.40 L (4.30-5.90) m/uL Hgb 9.3 L D (13.0-17.5) gm/dL Hct 27.1 L (39.0-53.0) % MCV 79.9 L (80.0-100.0) fL Neutrophils # 11.4 H (1.3-7.7) k/uL Lymphocytes # 0.2 L (1.0-4.8) k/uL PT (9.0-12.0) sec INR (<1.2) Sodium 134 L (137-145) mmol/L Potassium 2.7 L* (3.5-5.1) mmol/L Chloride (98-107) mmol/L BUN 22 H (9-20) mg/dL Creatinine 1.72 H (0.66-1.25) mg/dL Glucose 202 H (74-99) mg/dL POC Glucose (mg/dL) 350 H (75-99) mg/dL Calcium 7.5 L (8.4-10.2) mg/dL Total Bilirubin (0.2-1.3) mg/dL AST (17-59) U/L ALT (21-72) U/L Alkaline Phosphatase (38-126) U/L Troponin I (0.000-0.034) ng/mL Total Protein (6.3-8.2) g/dL Albumin (3.5-5.0) g/dL Urine Protein (Negative) Urine Glucose (UA) (Negative) Urine Ketones (Negative) Urine Blood (Negative) Ur Leukocyte Esterase (Negative) Urine RBC (0-5) /hpf Urine WBC (0-5) /hpf Urine WBC Clumps (None) /hpf Urine Bacteria (None) /hpf Hyaline Casts (0-2) /lpf Urine Mucus (None) /hpf Urine Yeast (Budding) (None) /hpf 11/05/18 Range/Units 05:55 WBC (3.8-10.6) k/uL RBC (4.30-5.90) m/uL Hgb (13.0-17.5) gm/dL Hct (39.0-53.0) % MCV (80.0-100.0) fL Neutrophils # (1.3-7.7) k/uL Lymphocytes # (1.0-4.8) k/uL PT (9.0-12.0) sec INR (<1.2) Sodium (137-145) mmol/L Potassium (3.5-5.1) mmol/L Chloride (98-107) mmol/L BUN (9-20) mg/dL Creatinine (0.66-1.25) mg/dL Glucose (74-99) mg/dL POC Glucose (mg/dL) 226 H (75-99) mg/dL Calcium (8.4-10.2) mg/dL Total Bilirubin (0.2-1.3) mg/dL AST (17-59) U/L ALT (21-72) U/L Alkaline Phosphatase (38-126) U/L Troponin I (0.000-0.034) ng/mL Total Protein (6.3-8.2) g/dL Albumin (3.5-5.0) g/dL Urine Protein (Negative) Urine Glucose (UA) (Negative) Urine Ketones (Negative) Urine Blood (Negative) Ur Leukocyte Esterase (Negative) Urine RBC (0-5) /hpf Urine WBC (0-5) /hpf Urine WBC Clumps (None) /hpf Urine Bacteria (None) /hpf Hyaline Casts (0-2) /lpf Urine Mucus (None) /hpf Urine Yeast (Budding) (None) /hpf Microbiology - Last 24 Hours (Table) 11/04/18 12:35 Urine Culture - Preliminary Urine,Voided Diabetes panel 11/04/18 11/05/18 Range/Units 12:35 05:37 Sodium 135 L 134 L (137-145) mmol/L Potassium 3.0 L 2.7 L* (3.5-5.1) mmol/L Chloride 96 L 98 (98-107) mmol/L Carbon Dioxide 26 27 (22-30) mmol/L BUN 17 22 H (9-20) mg/dL Creatinine 1.36 H 1.72 H (0.66-1.25) mg/dL Glucose 354 H 202 H (74-99) mg/dL Calcium 7.8 L 7.5 L (8.4-10.2) mg/dL AST 14 L (17-59) U/L ALT 15 L (21-72) U/L Alkaline Phosphatase 204 H (38-126) U/L Total Protein 5.9 L (6.3-8.2) g/dL Albumin 3.1 L (3.5-5.0) g/dL Calcium panel 11/04/18 11/05/18 Range/Units 12:35 05:37 Calcium 7.8 L 7.5 L (8.4-10.2) mg/dL Albumin 3.1 L (3.5-5.0) g/dL Pituitary panel 11/04/18 11/05/18 Range/Units 12:35 05:37 Sodium 135 L 134 L (137-145) mmol/L Potassium 3.0 L 2.7 L* (3.5-5.1) mmol/L Chloride 96 L 98 (98-107) mmol/L Carbon Dioxide 26 27 (22-30) mmol/L BUN 17 22 H (9-20) mg/dL Creatinine 1.36 H 1.72 H (0.66-1.25) mg/dL Glucose 354 H 202 H (74-99) mg/dL Calcium 7.8 L 7.5 L (8.4-10.2) mg/dL Adrenal panel 11/04/18 11/05/18 Range/Units 12:35 05:37 Sodium 135 L 134 L (137-145) mmol/L Potassium 3.0 L 2.7 L* (3.5-5.1) mmol/L Chloride 96 L 98 (98-107) mmol/L Carbon Dioxide 26 27 (22-30) mmol/L BUN 17 22 H (9-20) mg/dL Creatinine 1.36 H 1.72 H (0.66-1.25) mg/dL Glucose 354 H 202 H (74-99) mg/dL Calcium 7.8 L 7.5 L (8.4-10.2) mg/dL Total Bilirubin 1.6 H (0.2-1.3) mg/dL AST 14 L (17-59) U/L ALT 15 L (21-72) U/L Alkaline Phosphatase 204 H (38-126) U/L Total Protein 5.9 L (6.3-8.2) g/dL Albumin 3.1 L (3.5-5.0) g/dL Assessment and Plan (1) Malignant neoplasm of bladder Current Visit: Yes Status: Acute Code(s): C67.9 - MALIGNANT NEOPLASM OF BLADDER, UNSPECIFIED SNOMED Code(s): 370485305 (2) Hydronephrosis Current Visit: Yes Status: Acute Code(s): N13.30 - UNSPECIFIED HYDRONEPHROSIS SNOMED Code(s): 46596517 Plan: Both nephrostomy tubes are draining well. The patient is afebrile. A urine culture was pending. He would likely benefit from continued antibiotic therapy, pending the urine culture result. He was advised to reschedule his appointment with medical oncology. Please notify us if we can be of any further assistance. Time with Patient: Less than 30
--- NOTE | 2018-11-05 10:11 | IR ---
EXAMINATION TYPE: IR nephrostomy tube placement DATE OF EXAM: 11/04/2018 HISTORY: Hydronephrosis PROCEDURE: Maximal barrier technique was utilized. The skin overlying the Right kidney was localized at the sit e of patient's prior tube placement and the overlying skin prepped and draped. 5 Greek hockey-stick catheter was inserted at the level of the patient's nephrostomy tube and gentle hand injection of con trast material was performed. Based on the findings, 0.035 inch angled Glidewire was used in tandem w ith the catheter advanced into the renal collecting system. Contrast injection verified placement. Saavedra bsequently a 10 Greek catheter was advanced over wire in the renal pelvis and fixed in place. Urine returned in the hub of the catheter. Catheter was fixed to the skin with 2-0 silk and a sterile allen ssing was placed. The patient remained in stable condition without complication. The patient was di scharged to observation. Patent tract was identified from the skin into the renal collecting system. 1525 intraoperative image s, 0.4 minutes fluoroscopy time IMPRESSION: STATUS POST 10 UPPER SORBIAN NEPHROSTOMY TUBE PLACEMENT WITH FLUOROSCOPIC GUIDANCE. THIS PROCEDURE WAS PERF ORMED BY THE UNDERSIGNED.
--- NOTE | 2018-11-05 10:39 | CDI ---
Documentation Clarification Form Date: 10/05 CDS: Kassi Gonzalez RN, CCDS Admit Date: 11/07/2018 Patient Name: Narendra Hook ATTENTION: The Clinical Documentation Specialists (CDI) and [facility] Coding Staff appreciate your assistance in clarifying documentation. Please respond to the clarification below the line at the bottom and electronically sign. The CDI & [facility] Coding staff will review the response and follow-up if needed. Please note: Queries are made part of the Legal Health Record. If you have any questions, please contact the author of this message via ITS. Dr. Ariel Rivas MD UTI with Sepsis was documented in the H & P. History/Risk Factors: 63-year-old male presents to ED via EMS for confusion. Medical history Bilateral Nephrostomy tubes, Bladder Cancer, DM2; HTN Clinical Indicators: Vital Signs: 144/72 74 101.2 18 96% ra WBC: Wbc 14.2; Neutrophils 13.2; Urinalysis: Leukocyte Esterase Large Wbc 73; Cloudy; Hyaline Casts 32; Rbc 47; Budding yeast few Urine Culture: Pending Treatment: Antibiotics Rocephin ivpb Please document the condition that these clinical indicators signify, whether Present on Admission, and cause if known: * UTI due to catheter, device or implant, please document -Specify organism, if known -Identify location of infection (if known) Bladder, Kidney, Urethra * UTI Identify location of infection ( if known) Bladder, Kidney, Urethra * Other, please specify * Unable to determine (Last Revision: May 2017) Unable to determine MTDD
--- NOTE | 2018-11-05 10:53 | CDI ---
Documentation Clarification Form Date: 11/05/2018 CDS: Kassi Gonzalez RN, CCDS Admit Date: 11/04/2018 Patient Name: Narendra Hook ATTENTION: The Clinical Documentation Specialists (CDI) and [facility] Coding Staff appreciate your assistance in clarifying documentation. Please respond to the clarification below the line at the bottom and electronically sign. The CDI & [facility] Coding staff will review the response and follow-up if needed. Please note: Queries are made part of the Legal Health Record. If you have any questions, please contact the author of this message via ITS. Dr. Ariel Rivas MD The Patient is mildly Confused was documented in the H & P History/Risk Factors: 63-year-old male presents to the ED via EMS for confusion. Medical history Bilateral Nephrostomy tubes, Bladder Cancer, DM2; HTN Clinical Indicators: Per H & P - Acute Uti with Sepsis VSS 144/72/ 74 101.2 18 96% ra Labs: Wbc 14.2; Neutrophils 13.2; Urinalysis: Leukocyte Esterase Large Wbc 73; Cloudy; Hyaline Casts 32; Rbc 47; Budding yeast few Urine Culture: Pending Treatment: Rocephin ivpb Consult Urology In your professional opinion, please clarify the etiology of the Confusion, if known. * Metabolic Encephalopathy (specify Type and Underlying Medical Illness) * Delirium (specify cause ) * Other condition (please specify) * Unable to determine (Last Revision: May 2017) Metabolic Encephalopathy acute MTDD
[2018-11-05] MEDS: POTASSIUM CHLORIDE ER 20 MEQ TAB.ER PO SCH ×7 (11:09→22:54)
[2018-11-05 11:37] LABS: Glucose,Whole Blood 145 mg/dL (75-99)
[2018-11-05] MEDS: CEFEPIME 2 GM in SODIUM CHLORIDE 0.9% 100 ML IVPB SCH ×2 (12:15→21:06)
--- NOTE | 2018-11-05 16:27 | PN ---
PROGRESS NOTE DATE OF SERVICE: 11/05/2018. This 63-year-old gentleman was admitted with history of bladder cancer and possible UTI with sepsis. The patient had a dislodged nephrostomy tube which was re-inserted by Radiology. Currently the potassium is 2.7 and creatinine is 1.72. Patient is being closely monitored. Patient is on broad-spectrum IV antibiotics. Lactic acid is 2.4. Past medical history reviewed. REVIEW OF SYSTEMS: CARDIOVASCULAR SYSTEM: No angina, palpitations. RESPIRATORY SYSTEM: As mentioned earlier. GI: As mentioned earlier. : As mentioned earlier. NERVOUS SYSTEM: No numbness, weakness. CURRENT MEDICATIONS: Reviewed. They include: 1. Tylenol 650 q.6 p.r.n. 2. Craig 5 mg q.6. 3. Norvasc 10 mg p.o. daily. 4. Aspirin 81 mg p.o. daily. 5. Lipitor 40 mg at bedtime. 6. Cefepime 2 grams IV b.i.d. 7. Colace 100 mg p.o. daily. 8. Lovenox 100 mg subcutaneously b.i.d. 9. Levemir 15 subcutaneously at bedtime. 10.Magnesium oxide 400 mg p.o. b.i.d. 11.Canasa (mesalamine) 1000 mg rectally. 12.Replacement protocols. 13.Protonix. PHYSICAL EXAMINATION: Patient is alert, oriented x3. Pulse 73, blood pressure 90/ 48, respiration 18, temperature 99.6, pulse ox 96% on room air. HEENT: Conjunctivae normal. NECK: No jugular venous distention. CARDIOVASCULAR SYSTEM: S1, S2 muffled. RESPIRATORY SYSTEM: Breath sounds diminished at the bases. A few scattered rhonchi. ABDOMEN: Soft, non-tender. No mass palpable. LEGS: No edema. No swelling. NERVOUS SYSTEM: No focal deficit. EXAMINATION OF THE BACK: Status post bilateral nephrostomy tube present. LABS: WBC 12.2, hemoglobin 9.3. Sodium 134, potassium 2.7. Lactic acid 2.4. ASSESSMENT: 1. Acute urinary tract infection with sepsis, present on admission. 2. Dislodged right nephrostomy tube, re-inserted. 3. Bilateral nephrostomy tube for possible obstructive uropathy, hydronephrosis secondary to bladder cancer. 4. High-grade muscle-invasive urothelial carcinoma, being followed at [facility]. 5. Increased white count. 6. Anemia, normocytic. 7. Elevated lactic acid. 8. Hyponatremia. 9. Hypokalemia. 10.Troponin 0.072 of indeterminate origin. 11.Diabetes mellitus, type 2. 12.Gastroesophageal reflux disease. 13.Hypertension. 14.Hyperlipidemia. 15.History of myocardial infarction. 16.History of cataracts. 17.History of cholecystectomy. 18.History of nephrostomy tube x2. 19.History of permanent pacemaker. RECOMMENDATIONS AND DISCUSSION: In this 63-year-old gentleman who presented with multiple complex medical issues, we will monitor the patient closely. Will continue the broad-spectrum IV antibiotics. Patient is currently on IV cefepime. We will follow the cultures. Patient also a potassium of 2.7. We will supplement potassium and repeat electrolytes in the evening and monitor creatinine closely. Continue with IV fluids. Follow closely with multiple consultants. Prognosis is extremely guarded because of multiple complex medical issues. I would also recommend PT/OT evaluation and social insurance administrator to evaluate the home situation. Guarded prognosis. Further recommendations to follow. MMODL / IJN: [id number] /
[2018-11-05 16:33] LABS: Glucose,Whole Blood 95 mg/dL (75-99)
[2018-11-05 19:27] LABS: Calcium 7.6 mg/dL (8.4-10.2); Potassium 3.2 mmol/L (3.5-5.1)
[2018-11-05 20:40] LABS: Glucose,Whole Blood 116 mg/dL (75-99)
[2018-11-05] MEDS: INSULIN DETEMIR (LEVEMIR) 100 UNIT/ML SYR SQ SCH (21:02)
[2018-11-05] MEDS: ATORVASTATIN 40 MG TAB PO SCH (21:06)
--- NOTE | 2018-11-05 23:45 | P.CONS ---
History of Present Illness - Reason for Consult Consult date: 11/05/18 Sepsis Requesting physician: Ariel Rivas - Chief Complaint Fever and confusion 1 day - History of Present Illness The patient is a 63-year-old white male with recent diagnosis of high-grade muscle invasive urothelial carcinoma in July 2018, patient did have left hydronephrosis at that time. The patient was referred to [facility] for management. He underwent bilateral nephrostomy tube placement. On the day of presentation to the hospital the home care nurse noticed the patient to be confused and lethargic, the patient did have fever and he was noticed to have his right nephrostomy tube dislodged with the symptoms and the patient was evaluated by the physician on arrival to the patient did have a fever of 101F. She did have elevated white count of 14,000 patient noticed to have a positive UA and chest x-ray was negative for any acute infiltrate the patient was started on Rocephin blood and urine culture were obtained which are coming positive with a negative besides as of this infection disease consultation. At the time of evaluation this morning the patient fever pattern has improved patient continued complaining of feeling weak and tired and no energy denies having any headache nor URI symptoms and no chest pain shortness of breath or cough no nausea no vomiting no abdominal pain and no diarrhea Review of Systems Positive points has been mentioned in HPI rest of the systems are negative Past Medical History Past Medical History: CVA/TIA, Diabetes Mellitus, GERD/Reflux, Hyperlipidemia, Hypertension, Myocardial Infarction (DC) Additional Past Medical History / Comment(s): cataracts pacemaker Last Myocardial Infarction Date:: 1996 History of Any Multi-Drug Resistant Organisms: None Reported Past Surgical History: Cholecystectomy, Pacemaker Additional Past Surgical History / Comment(s): nephrostomy tube x2 Type of Cardiac Device: Permanent Pacemaker Device Placement Date:: 2013 Past Psychological History: No Psychological Hx Reported Smoking Status: Former smoker Past Alcohol Use History: Rare Past Drug Use History: None Reported Medications and Allergies Home Medications Medication Instructions Recorded Confirmed Type traZODone HCL [Desyrel] 300 mg PO HS 11/09/15 11/04/18 History ALPRAZolam [Xanax] 0.5 mg PO TID 09/20/18 11/04/18 History Atorvastatin [Lipitor] 40 mg PO HS 09/20/18 11/04/18 History Metoprolol Succinate [Toprol XL] 200 mg PO DAILY 09/20/18 11/04/18 History Omeprazole [PriLOSEC] 20 mg PO DAILY 09/20/18 11/04/18 History amLODIPine [Norvasc] 10 mg PO DAILY 09/20/18 11/04/18 History Acetaminophen Tab [Tylenol Tab] 650 mg PO Q6H PRN 11/04/18 11/04/18 History Aspirin EC [Ecotrin Low Dose] 81 mg PO DAILY 11/04/18 11/04/18 History Docusate [Colace] 100 mg PO DAILY PRN 11/04/18 11/04/18 History Enoxaparin Sodium 100 mg SQ DAILY 11/04/18 11/04/18 History INSULIN LISPRO (HumaLOG) [HumaLOG] See Protocol SQ AC-TID 11/04/18 11/04/18 History Insulin Glargine [Lantus] 15 unit SQ HS 11/04/18 11/04/18 History Magnesium Oxide [Mag-Ox] 400 mg PO BID 11/04/18 11/04/18 History Mesalamine [Canasa] 1,000 mg RECTAL BID 11/04/18 11/04/18 History Nitroglycerin Sl Tabs [Nitrostat] 0.4 mg SUBLINGUAL Q5M PRN 11/04/18 11/04/18 History Nutrisource Fiber 4 gram PO BID 11/04/18 11/04/18 History Allergies Allergy/AdvReac Type Severity Reaction Status Date / Time No Known Allergies Allergy Verified 11/04/18 12:32 Physical Exam Vitals: Vital Signs Temp Pulse Pulse Resp BP BP Pulse Ox 11/05/18 11:10 99.6 F 73 18 90/48 96 11/05/18 08:00 101.1 F H 105 H 18 136/63 98 11/05/18 04:00 98.1 F 94 18 127/58 95 11/05/18 00:00 72 16 130/61 11/04/18 19:50 98.6 F 74 16 114/52 98 11/04/18 19:06 66 16 111/58 99 11/04/18 18:40 18 11/04/18 17:00 75 16 110/55 97 11/04/18 15:40 62 109/50 11/04/18 15:30 60 118/56 11/04/18 15:20 75 118/56 11/04/18 15:10 67 104/50 11/04/18 15:00 62 106/62 11/04/18 14:50 68 106/62 11/04/18 14:40 66 123/79 11/04/18 14:30 68 120/57 99 11/04/18 14:20 120/57 98 11/04/18 14:13 70 18 112/78 96 11/04/18 14:10 72 18 112/66 98 11/04/18 14:00 73 16 127/60 96 11/04/18 13:40 68 18 116/68 99 11/04/18 13:33 99.6 F 59 L 16 116/68 8 L 11/04/18 13:20 77 16 138/70 97 11/04/18 13:10 77 18 151/67 11/04/18 13:00 79 16 138/72 11/04/18 12:40 73 18 141/65 97 11/04/18 12:20 144/66 96 11/04/18 12:10 73 19 111/59 93 L 11/04/18 12:04 101.2 F H 74 18 144/72 96 11/04/18 12:00 77 11 L 144/71 93 L 11/04/18 11:58 90 L Intake and Output 11/04/18 11/05/18 11/05/18 22:59 06:59 14:59 Intake Total 20 360 Output Total 600 Balance -580 360 Intake: Oral 20 360 Output: Drainage 300 Left Back 300 Urine 300 Other: Weight 81 kg GENERAL DESCRIPTION: An elderly male lying in bed, no distress. No tachypnea or accessory muscle of respiration use. HEENT: Shows Pallor , no scleral icterus. Oral mucous membrane is dry. No pharyngeal erythema or thrush NECK: Trachea central, no thyromegaly. LUNGS: Unlabored breathing. Decreased breath sound at [place]. No wheeze or crackle. HEART: S1, S2, regular rate and rhythm. No loud murmur ABDOMEN: Soft, no tenderness , guarding or rigidity, no organomegaly EXTREMITIES: No edema of feet. SKIN: No rash, no masses palpable. NEUROLOGICAL: The patient is awake, alert, oriented x3, mood and affect normal. Results CBC & Chem 7: 11/05/18 05:37 11/05/18 18:55 Labs: Abnormal Lab Results - Last 24 Hours (Table) 11/04/18 11/04/18 11/04/18 Range/Units 12:35 12:35 12:35 WBC 14.2 H (3.8-10.6) k/uL RBC 3.86 L (4.30-5.90) m/uL Hgb 10.8 L (13.0-17.5) gm/dL Hct 30.8 L (39.0-53.0) % MCV 79.7 L D (80.0-100.0) fL Neutrophils # 13.2 H (1.3-7.7) k/uL Lymphocytes # 0.2 L (1.0-4.8) k/uL PT 14.5 H (9.0-12.0) sec INR 1.4 H (<1.2) Sodium 135 L (137-145) mmol/L Potassium 3.0 L (3.5-5.1) mmol/L Chloride 96 L (98-107) mmol/L BUN (9-20) mg/dL Creatinine 1.36 H (0.66-1.25) mg/dL Glucose 354 H (74-99) mg/dL POC Glucose (mg/dL) (75-99) mg/dL Calcium 7.8 L (8.4-10.2) mg/dL Total Bilirubin 1.6 H (0.2-1.3) mg/dL AST 14 L (17-59) U/L ALT 15 L (21-72) U/L Alkaline Phosphatase 204 H (38-126) U/L Troponin I (0.000-0.034) ng/mL Total Protein 5.9 L (6.3-8.2) g/dL Albumin 3.1 L (3.5-5.0) g/dL Urine Protein (Negative) Urine Glucose (UA) (Negative) Urine Ketones (Negative) Urine Blood (Negative) Ur Leukocyte Esterase (Negative) Urine RBC (0-5) /hpf Urine WBC (0-5) /hpf Urine WBC Clumps (None) /hpf Urine Bacteria (None) /hpf Hyaline Casts (0-2) /lpf Urine Mucus (None) /hpf Urine Yeast (Budding) (None) /hpf 11/04/18 11/04/18 11/04/18 Range/Units 12:35 12:35 17:04 WBC (3.8-10.6) k/uL RBC (4.30-5.90) m/uL Hgb (13.0-17.5) gm/dL Hct (39.0-53.0) % MCV (80.0-100.0) fL Neutrophils # (1.3-7.7) k/uL Lymphocytes # (1.0-4.8) k/uL PT (9.0-12.0) sec INR (<1.2) Sodium (137-145) mmol/L Potassium (3.5-5.1) mmol/L Chloride (98-107) mmol/L BUN (9-20) mg/dL Creatinine (0.66-1.25) mg/dL Glucose (74-99) mg/dL POC Glucose (mg/dL) 348 H (75-99) mg/dL Calcium (8.4-10.2) mg/dL Total Bilirubin (0.2-1.3) mg/dL AST (17-59) U/L ALT (21-72) U/L Alkaline Phosphatase (38-126) U/L Troponin I 0.072 H* (0.000-0.034) ng/mL Total Protein (6.3-8.2) g/dL Albumin (3.5-5.0) g/dL Urine Protein 2+ H (Negative) Urine Glucose (UA) 1+ H (Negative) Urine Ketones 1+ H (Negative) Urine Blood Small H (Negative) Ur Leukocyte Esterase Large H (Negative) Urine RBC 47 H (0-5) /hpf Urine WBC 73 H (0-5) /hpf Urine WBC Clumps Rare H (None) /hpf Urine Bacteria Occasional H (None) /hpf Hyaline Casts 32 H (0-2) /lpf Urine Mucus Rare H (None) /hpf Urine Yeast (Budding) Few H (None) /hpf 11/04/18 11/05/18 11/05/18 Range/Units 21:18 05:37 05:37 WBC 12.2 H (3.8-10.6) k/uL RBC 3.40 L (4.30-5.90) m/uL Hgb 9.3 L D (13.0-17.5) gm/dL Hct 27.1 L (39.0-53.0) % MCV 79.9 L (80.0-100.0) fL Neutrophils # 11.4 H (1.3-7.7) k/uL Lymphocytes # 0.2 L (1.0-4.8) k/uL PT (9.0-12.0) sec INR (<1.2) Sodium 134 L (137-145) mmol/L Potassium 2.7 L* (3.5-5.1) mmol/L Chloride (98-107) mmol/L BUN 22 H (9-20) mg/dL Creatinine 1.72 H (0.66-1.25) mg/dL Glucose 202 H (74-99) mg/dL POC Glucose (mg/dL) 350 H (75-99) mg/dL Calcium 7.5 L (8.4-10.2) mg/dL Total Bilirubin (0.2-1.3) mg/dL AST (17-59) U/L ALT (21-72) U/L Alkaline Phosphatase (38-126) U/L Troponin I (0.000-0.034) ng/mL Total Protein (6.3-8.2) g/dL Albumin (3.5-5.0) g/dL Urine Protein (Negative) Urine Glucose (UA) (Negative) Urine Ketones (Negative) Urine Blood (Negative) Ur Leukocyte Esterase (Negative) Urine RBC (0-5) /hpf Urine WBC (0-5) /hpf Urine WBC Clumps (None) /hpf Urine Bacteria (None) /hpf Hyaline Casts (0-2) /lpf Urine Mucus (None) /hpf Urine Yeast (Budding) (None) /hpf 11/05/18 Range/Units 05:55 WBC (3.8-10.6) k/uL RBC (4.30-5.90) m/uL Hgb (13.0-17.5) gm/dL Hct (39.0-53.0) % MCV (80.0-100.0) fL Neutrophils # (1.3-7.7) k/uL Lymphocytes # (1.0-4.8) k/uL PT (9.0-12.0) sec INR (<1.2) Sodium (137-145) mmol/L Potassium (3.5-5.1) mmol/L Chloride (98-107) mmol/L BUN (9-20) mg/dL Creatinine (0.66-1.25) mg/dL Glucose (74-99) mg/dL POC Glucose (mg/dL) 226 H (75-99) mg/dL Calcium (8.4-10.2) mg/dL Total Bilirubin (0.2-1.3) mg/dL AST (17-59) U/L ALT (21-72) U/L Alkaline Phosphatase (38-126) U/L Troponin I (0.000-0.034) ng/mL Total Protein (6.3-8.2) g/dL Albumin (3.5-5.0) g/dL Urine Protein (Negative) Urine Glucose (UA) (Negative) Urine Ketones (Negative) Urine Blood (Negative) Ur Leukocyte Esterase (Negative) Urine RBC (0-5) /hpf Urine WBC (0-5) /hpf Urine WBC Clumps (None) /hpf Urine Bacteria (None) /hpf Hyaline Casts (0-2) /lpf Urine Mucus (None) /hpf Urine Yeast (Budding) (None) /hpf Microbiology - Last 24 Hours (Table) 11/04/18 12:35 Blood Culture Gram Stain - Preliminary Blood 11/04/18 12:35 Blood Culture - Final Blood 11/04/18 12:35 Urine Culture - Preliminary Urine,Voided Assessment and Plan Assessment: 1-patient presented to the hospital with gram-negative sepsis in this patient who did have a fever and elevated white count also with a history of bladder cancer with bilateral hydronephrosis requiring bilateral nephrostomy tube placement one of them got dislodged now with evidence of gram-negative bacteremia secondary to ureteric infection complicated this patient who has been in the hospital and exposed to anybody concern would be for likely resistant gram-negative such as Pseudomonas (1) Gram-negative bacteremia Current Visit: Yes Status: Acute Code(s): R78.81 - BACTEREMIA SNOMED Code(s): 038165271620 (2) Sepsis Current Visit: Yes Status: Acute Code(s): A41.9 - SEPSIS, UNSPECIFIED ORGANISM SNOMED Code(s): 70264030 (3) Urinary tract infection Current Visit: Yes Status: Acute Code(s): N39.0 - URINARY TRACT INFECTION, SITE NOT SPECIFIED SNOMED Code(s): 69008852 Plan: 1-blood cultures repeated to document clearance of his bacteremia 2-discontinue the Rocephin 3-start the patient on cefepime 2 g every 12 hours 4-gentle IV fluid we will follow on clinical condition and culture to further adjust medication if needed Thank you for this consultation will follow this patient along with you Time with Patient: Greater than 30
[2018-11-06] MEDS: 0.9% NACL WITH KCL 40 MEQ/L 1,000 ML IV SCH ×3 (03:06→21:23)
[2018-11-06 06:26] LABS: Calcium 7.8 mg/dL (8.4-10.2); Potassium 4.2 mmol/L (3.5-5.1)
[2018-11-06 06:31] LABS: Basophils % (A) 0 %; Eosinophils % (A) 0 %; HGB 9.4 gm/dL (13.0-17.5); Lymphocytes # (A) 0.2 k/uL (1.0-4.8); Lymphocytes % (A) 2 %; MCH 27.3 pg (25.0-35.0); MCHC 33.5 g/dL (31.0-37.0); MCV 81.5 fL (80.0-100.0); Mean Platelet Volume 8.8; Monocytes # (A) 0.4 k/uL (0-1.0); Monocytes % (A) 4 %; Neutrophils # (A) 9.5 k/uL (1.3-7.7); Neutrophils % (A) 93 %; Platelet Count 140 k/uL (150-450); Poikilocytosis Slight; RBC 3.44 m/uL (4.30-5.90); RDW 15.9 % (11.5-15.5); WBC 10.3 k/uL (3.8-10.6)
[2018-11-06 06:32] LABS: Glucose,Whole Blood 231 mg/dL (75-99)
[2018-11-06] MEDS: INSULIN ASPART (NovoLOG) 100 UNIT/ML VIAL SQ SCH ×4 (06:38→21:27)
[2018-11-06] MEDS: PANTOPRAZOLE 40 MG TABLET PO SCH (06:38)
[2018-11-06] MEDS: amLODIPine 10 MG TAB PO SCH (09:13)
[2018-11-06] MEDS: ENOXAPARIN 100 MG/ML SYRINGE SQ SCH (09:13)
[2018-11-06] MEDS: CEFEPIME 2 GM in SODIUM CHLORIDE 0.9% 100 ML IVPB SCH ×2 (09:13→21:23)
[2018-11-06] MEDS: MAGNESIUM OXIDE 400 MG TAB PO SCH ×2 (09:13→21:23)
[2018-11-06] MEDS: METOPROLOL SUCCINATE (ER) 100 MG TAB.ER.24H PO SCH (09:13)
[2018-11-06] MEDS: ASPIRIN 81 MG PO SCH (09:13)
[2018-11-06] MEDS ORDERED: ALPRAZolam 0.5 MG TAB PO PRN (11:44)
[2018-11-06] MEDS ORDERED: traZODone HCL 100 MG TAB PO PRN (11:44)
[2018-11-06 11:51] LABS: Glucose,Whole Blood 300 mg/dL (75-99)
[2018-11-06] MEDS: MESALAMINE 1,000 MG SUPP RECTAL SCH ×2 (12:10→21:25)
[2018-11-06] MEDS: FLUCONAZOLE 100 MG TAB PO SCH (14:52)
--- NOTE | 2018-11-06 15:21 | P.PN ---
Subjective Progress Note Date: 11/06/18 Principal diagnosis: This is a 63-year-old male who was recently admitted with a history of bladder cancer and possible UTI with sepsis and is being closely monitored. Patient's potassium was replaced yesterday and is currently 4.2. Nephrostomy tubes are currently draining bilaterally. Urology is following. Infectious disease is following. IV antibiotics were switched to cefepime per infectious disease recommendations. Awaiting finalization of repeat blood cultures for clearance of bacteremia. Urine culture show Genna albicans and Diflucan was ordered. Awaiting final report of cultures. No chest pain. No palpitations. Afebrile. REVIEW OF SYSTEMS: ENT: No diminished vision or hearing. CARDIOVASCULAR: Denies chest pain or palpitations RESPIRATORY: Denies shortness of breath or cough GI: Denies nausea, vomiting, or diarrhea : Denies dysuria or retention has bilateral nephrostomy tubes NERVOUS SYSTEM: Denies numbness, reports weakness CONSTITUTIONAL: Denies fever or fatigue DERMATOLOGY: Denies rash or lesions PSYCHIATRY: Denies depression or suicidal ideation Active Medications Acetaminophen (Tylenol Tab) 650 mg PO Q6H PRN Hydrocodone Bitart/Acetaminophen ([place] 5-325) 1 each PO Q6HR PRN Alprazolam (Xanax) 0.5 mg PO TID PRN Amlodipine Besylate (Norvasc) 10 mg PO DAILY JAM Aspirin (Aspirin) 81 mg PO DAILY JAM Atorvastatin Calcium (Lipitor) 40 mg PO HS JAM Docusate Sodium (Colace) 100 mg PO DAILY PRN Enoxaparin Sodium (Lovenox) 100 mg SQ DAILY JAM Fluconazole (Diflucan) 200 mg PO DAILY JAM Potassium Chloride/Sodium Chloride (Ns-Kcl 40 Meq/L Iv Solution) 1,000 mls @ 75 mls/hr IV .[id number] JAM Cefepime HCl 2 gm/ Sodium (Chloride) 100 mls @ 200 mls/hr IVPB Q12HR JAM Insulin Aspart (Novolog) 0 unit SQ ACHS JAM; Protocol Insulin Detemir (Levemir) 15 unit SQ HS JAM Magnesium Oxide (Mag-Ox) 400 mg PO BID JAM Mesalamine (Canasa) 1,000 mg RECTAL BID [facility] Metoprolol Succinate (Toprol Xl) 200 mg PO DAILY [facility] Miscellaneous Information (Potassium Per Protocol) 1 each MISCELLANE DAILY PRN; Protocol Nitroglycerin (Nitrostat) 0.4 mg SUBLINGUAL Q5M PRN Pantoprazole Sodium (Protonix) 40 mg PO AC-BRKFST JAM Trazodone HCl (Desyrel) 300 mg PO HS PRN Objective - Vital Signs Vital signs: Vital Signs Temp 98.8 F 11/06/18 12:00 Pulse 67 11/06/18 12:00 Resp 18 11/06/18 12:00 BP 109/54 11/06/18 12:00 Pulse Ox 98 11/06/18 12:00 Intake & Output 11/05/18 11/06/18 11/06/18 18:59 06:59 18:59 Intake Total 582 480 300 Output Total 250 400 200 Balance 332 80 100 Weight 99.8 kg Intake: Oral 582 480 300 Output: Urine 250 400 200 Other: # Bowel Movements 1 1 - Exam Gen: This is a 63-year-old male sitting up in bed in no acute distress. Temp is 98.5F, pulse is 70, respirations are 18, blood pressure is 98/60, oxygen saturation is 97% on room air. HEENT: Head is atraumatic, normocephalic. Pupils equal, round. Sclerae is anicteric. NECK: Supple. No JVD. No lymphadenopathy. No thyromegaly. LUNGS: Diminished breath sounds at the bases with some rhonchi noted. Mild crackles noted at the bases. No intercostal retractions. HEART: S1, S2 muffled ABDOMEN: Soft. Obese. Bowel sounds are present. No masses. No tenderness. Bilateral nephrostomy tubes present on the back and draining yellow concentrated urine with some mucous strands EXTREMITIES: No pedal edema. No calf tenderness. NEUROLOGICAL: Patient is awake, alert and oriented x3. Flat affect. Cranial nerves 2 through 12 are grossly intact. - Labs CBC & Chem 7: 11/06/18 05:40 11/06/18 05:40 Labs: Abnormal Lab Results - Last 24 Hours (Table) 11/05/18 11/05/18 11/06/18 Range/Units 18:55 20:39 05:40 RBC 3.44 L (4.30-5.90) m/uL Hgb 9.4 L (13.0-17.5) gm/dL Hct 28.0 L (39.0-53.0) % RDW 15.9 H (11.5-15.5) % Plt Count 140 L (150-450) k/uL Neutrophils # 9.5 H (1.3-7.7) k/uL Lymphocytes # 0.2 L (1.0-4.8) k/uL Sodium 136 L (137-145) mmol/L Potassium 3.2 L (3.5-5.1) mmol/L Carbon Dioxide (22-30) mmol/L BUN 26 H (9-20) mg/dL Creatinine 1.75 H (0.66-1.25) mg/dL Glucose 111 H (74-99) mg/dL POC Glucose (mg/dL) 116 H (75-99) mg/dL Calcium 7.6 L (8.4-10.2) mg/dL 11/06/18 11/06/18 11/06/18 Range/Units 05:40 06:31 11:49 RBC (4.30-5.90) m/uL Hgb (13.0-17.5) gm/dL Hct (39.0-53.0) % RDW (11.5-15.5) % Plt Count (150-450) k/uL Neutrophils # (1.3-7.7) k/uL Lymphocytes # (1.0-4.8) k/uL Sodium 136 L (137-145) mmol/L Potassium (3.5-5.1) mmol/L Carbon Dioxide 20 L (22-30) mmol/L BUN 27 H (9-20) mg/dL Creatinine 1.66 H (0.66-1.25) mg/dL Glucose 212 H (74-99) mg/dL POC Glucose (mg/dL) 231 H 300 H (75-99) mg/dL Calcium 7.8 L (8.4-10.2) mg/dL Microbiology - Last 24 Hours (Table) 11/05/18 11:50 Blood Culture - Preliminary Blood No Growth after 24 hours 11/04/18 12:35 Blood Culture Gram Stain - Preliminary Blood Blood Culture - Preliminary Gram Neg Bacilli 11/04/18 12:35 Urine Culture - Final Urine,Voided Genna albicans 11/04/18 12:35 Blood Culture - Final Blood Assessment and Plan Assessment: Acute urinary tract infection with sepsis, present on admission Dislodged right nephrostomy tube, reinserted and draining Bilateral nephrostomy tube for possible obstructive uropathy, hydronephrosis secondary to bladder cancer High-grade muscle invasive urothelial carcinoma, being followed at [facility] Increased white count Anemia, normocytic Elevated lactic acid Hyponatremia Hypokalemia Troponin 0.072 of indeterminate origin Diabetes mellitus type 2 Gastroesophageal reflux disease Hypertension hyperlipidemia history of cataracts history of myocardial infarction History of cholecystectomy History of nephrostomy tube 2 History of permanent pacemaker Recommendations and discussion: Recommend continue current medications, management, and symptomatic treatment. Patient is currently on IV antibiotics in the form of cefepime and will continue. Patient states he is having a hard time sleeping and normally takes Xanax and trazodone as needed. These medications were reordered at this time. Patient had potassium replaced yesterday and potassium is currently 4.2. Will continue to monitor vital signs and labs closely. IV fluids have been reduced and will continue to monitor. Patient states he currently lives at home alone and his daughter lives approximately 50 miles away. Possible placement in a rehab upon discharge. Social work and case management are following. Due to multiple complex medical issues prognosis is extremely guarded. Further recommendations to follow.
[2018-11-06 16:50] LABS: Glucose,Whole Blood 256 mg/dL (75-99)
[2018-11-06] MEDS ORDERED: LIDOCAINE 1% INJ 10MG/ML (20 ML MDV) SQ ONE (17:34)
--- NOTE | 2018-11-06 18:24 | P.OP ---
Date of Procedure: 11/06/18 Preoperative Diagnosis: hydronephrosis Procedure(s) Performed: right nephrostomy Anesthesia: local Estimated Blood Loss (ml): 10 Pathology: none sent Condition: stable Disposition: no change Operative Findings: 10 fr neph tube to gravity Description of Procedure: right lower pole calyx, u/s and fluoro guide
[2018-11-06] MEDS: HYDROcodone/APAP 5-325MG 1 EACH TAB PO PRN (18:46)
--- NOTE | 2018-11-06 19:52 | PN ---
PROGRESS NOTE DATE OF SERVICE: 11/06/2018. REASON FOR FOLLOWUP: Complicated urinary tract infection with bacteremia. INTERVAL HISTORY: The patient is currently afebrile, has been breathing comfortably. He did mention feeling that good today, though. No nausea. No vomiting. No abdominal pain and no diarrhea reported. PHYSICAL EXAMINATION: Blood pressure 101/53 with a pulse of 62, temperature of 98. He is 98% on room air. General description is an elderly male up in the bed in no distress. RESPIRATORY SYSTEM: Unlabored breathing. Clear to auscultation. HEART: S1, S2. Regular rate and rhythm. ABDOMEN: Soft. No tenderness. GENITOURINARY: The patient did have clear urine in the left nephrostomy. Right nephrostomy mostly blood-stained. EXTREMITIES: No edema of the feet. LABS: Hemoglobin 9.4, white count normal at 10.3 with a BUN of 27, creatinine 1.66. ID and sensitivities on the gram-negative are currently pending. Repeat blood cultures have been negative so far. Urine is currently showing Genna albicans. DIAGNOSTIC IMPRESSION AND PLAN: Patient with a complicated urinary tract infection in this patient who did have bladder cancer with bilateral hydronephrosis, status post bilateral nephrostomy tubes. Right one fell off and has to be re-inserted, with mostly hematuria. This patient did have evidence of gram-negative bacteremia, currently covered with cefepime; to continue while waiting for the final ID and sensitivities. In view of the growth of Genna albicans, Diflucan will be added and we will monitor the clinical course closely. MMODL / IJN: [id number] /
[2018-11-06 20:56] LABS: Glucose,Whole Blood 257 mg/dL (75-99)
[2018-11-06] MEDS: ATORVASTATIN 40 MG TAB PO SCH (21:23)
[2018-11-06] MEDS: INSULIN DETEMIR (LEVEMIR) 100 UNIT/ML SYR SQ SCH (21:27)
[2018-11-07 00:11] LABS: Glucose,Whole Blood 181 mg/dL (75-99)
[2018-11-07] MEDS: ACETAMINOPHEN TAB 325 MG TAB PO PRN (04:57)
[2018-11-07 06:32] LABS: Glucose,Whole Blood 149 mg/dL (75-99)
[2018-11-07] MEDS: INSULIN ASPART (NovoLOG) 100 UNIT/ML VIAL SQ SCH ×4 (06:35→20:20)
[2018-11-07] MEDS: PANTOPRAZOLE 40 MG TABLET PO SCH (06:35)
[2018-11-07 07:24] LABS: Basophils % (A) 1 %; Eosinophils # (A) 0.1 k/uL (0-0.7); Eosinophils % (A) 1 %; HCT 24.3 % (39.0-53.0); HGB 8.2 gm/dL (13.0-17.5); Lymphocytes # (A) 0.1 k/uL (1.0-4.8); Lymphocytes % (A) 2 %; MCH 27.3 pg (25.0-35.0); MCHC 33.7 g/dL (31.0-37.0); MCV 81.1 fL (80.0-100.0); Mean Platelet Volume 8.3; Monocytes # (A) 0.3 k/uL (0-1.0); Monocytes % (A) 4 %; Neutrophils % (A) 92 %; Platelet Count 147 k/uL (150-450); Poikilocytosis Slight; RBC 2.99 m/uL (4.30-5.90); RDW 15.5 % (11.5-15.5); WBC 6.5 k/uL (3.8-10.6)
[2018-11-07 07:30] LABS: Calcium 7.9 mg/dL (8.4-10.2); Potassium 3.7 mmol/L (3.5-5.1)
[2018-11-07] MEDS: ASPIRIN 81 MG PO SCH (08:56)
[2018-11-07] MEDS: FLUCONAZOLE 100 MG TAB PO SCH (08:56)
[2018-11-07] MEDS: METOPROLOL SUCCINATE (ER) 100 MG TAB.ER.24H PO SCH (08:56)
[2018-11-07] MEDS: MAGNESIUM OXIDE 400 MG TAB PO SCH ×2 (08:56→19:47)
[2018-11-07] MEDS: amLODIPine 10 MG TAB PO SCH (08:56)
[2018-11-07] MEDS: ENOXAPARIN 100 MG/ML SYRINGE SQ SCH ×2 (08:56→09:00)
[2018-11-07] MEDS: MESALAMINE 1,000 MG SUPP RECTAL SCH ×2 (08:57→19:47)
[2018-11-07] MEDS: CEFEPIME 2 GM in SODIUM CHLORIDE 0.9% 100 ML IVPB SCH ×2 (09:00→19:46)
--- NOTE | 2018-11-07 09:14 | P.CON ---
Consult Note - . Consult date: 11/07/18 Assessment/Plan:: This is a 63-year-old pleasant male who is being seen for a pressure- related ulceration to the coccyx. Patient states that the area has been bothering him since May and he noticed some skin breakdown at that time. Patient states that he has not been doing any wound care to the site. Patient states that he spends the majority of his time sitting or lying in bed as he is not able to do anything else. Patient is hospitalized due to a urinary tract infection, change in mental status, slippage of the right nephrostomy tube. The right nephrostomy tube has been replaced. Patient has medical history is significant for bladder cancer, diabetes, GERD, hypertension, hyperlipidemia, cholecystectomy, and CVA. Review Of Systems: Constitutional: No fever, no chills, no night sweats. No weight change. No weakness, fatigue or lethargy. No daytime sleepiness. Integumentary: Reports wounds, no lesions. No rash or pruritus. No unusual bruising. No change in hair or nails. General Appearance: Alert, cooperative, no distress, appears older stated age. Back: Symmetric, no curvature, ROM limited Abdomen: Soft, non-tender, no rebound or rigidity, Extremities: Extremities normal, atraumatic, no cyanosis or edema. Pulses: 2+ and symmetric. Skin: Stage II pressure ulcer to right gluteus Limited to skin breakdown, erythema noted no drainage noted. All other Skin color, texture, tugor normal, no rashes or lesions. Neurologic: Alert oriented x3 cranial nerves II through XII intact, Assessment/plan: 1. Nonhealing ulceration with pressure component stage II. Apply triad and a hydrocolloid dressing on Sunday and Sunday. Apply barrier cream to the wound as needed. Continue to offload positioning patient office coccyx that as much as possible. Utilize a Roho-type cushion for sitting. Limit the amount of time sitting. Discussed with patient outpatient wound care upon discharge. Thank you for the consultation. Any questions please call the wound care center. DNP note has been reviewed and discussed with Dr. Benson and the impression and plan of care has been directed as dictated.
[2018-11-07 11:52] LABS: Glucose,Whole Blood 144 mg/dL (75-99)
--- NOTE | 2018-11-07 12:50 | IR ---
Right nephrostomy HISTORY: Bladder carcinoma, hydronephrosis, nephrostomy catheter pulled out Prior nephrostomy tube placement 11/04/2018 Maximal barrier technique was utilized. Patient's ostomy site was prepped and draped. Gentle hand inj ection of contrast material was performed for a 5 Czech catheter along the patient's nephrostomy tra ct. Attempts to cannulate the tract with angle Glidewire and catheter were unsuccessful. The skin overlying the right kidney was localized using ultrasound and the overlying skin prepped an d draped. Ultrasound was utilized with sterile technique. Lidocaine used for local anesthesia. Skin genesis was made with a scalpel. Access was gained under ultrasound with a 22-gauge needle to the lowe r pole of the right kidney consistent. Urine returned in the hub of the needle. A 0.018 inch wire was advanced. The access site was dilated and subsequently 10French catheter was advanced over wire in the renal pelvis and fixed in place. Urine returned in the hub of the catheter. Catheter was fix ed to the skin with 2-0 silk and a sterile dressing was placed. The patient remained in stable condi tion without complication. The patient was discharged to observation. IMPRESSION: STATUS POST 10 MICRONESIAN NEPHROSTOMY TUBE PLACEMENT WITH ULTRASOUND AND FLUOROSCOPIC GUID HEIDI. THIS PROCEDURE WAS PERFORMED BY THE UNDERSIGNED. 294 intraoperative C-arm images, 10.9 minutes fluoroscopy time
[2018-11-07] MEDS: HYDROPHILIC CREAM 180 GM TUBE TOPICAL SCH (13:56)
[2018-11-07 16:39] LABS: Glucose,Whole Blood 195 mg/dL (75-99)
--- NOTE | 2018-11-07 16:48 | P.PN ---
Subjective Progress Note Date: 11/07/18 Principal diagnosis: This is a 63-year-old male who was recently admitted with a history of bladder cancer and possible UTI with sepsis and is being closely monitored. Patient's potassium was replaced yesterday and is currently 4.2. Nephrostomy tubes are currently draining bilaterally. Urology is following. Infectious disease is following. IV antibiotics were switched to cefepime per infectious disease recommendations. Awaiting finalization of repeat blood cultures for clearance of bacteremia. Urine culture show Genna albicans and Diflucan was ordered. Awaiting final report of cultures. No chest pain. No palpitations. Afebrile. 11/07/2018 Patient is sitting up at the side of the bed in no acute distress. Per nursing staff patient continues to be confused but redirectable. Patient was telling nursing staff that he would like to go home and was not aware that his family was looking into a possible rehab facility for continuous care. Patient denies any chest pain, palpitations, or shortness of breath at this time. Patient denies any nausea or vomiting and is tolerating diet. Patient is afebrile. Discussed with the patient about possible rehab placement and that is what his daughter would feel is most safe at this time and patient stated "sounds like a plan". Finalized blood cultures from 11/04/2018 shows Klebsiella pneumonia. Repeat blood cultures from 11/05/2018 are negative thus far and will await finalization. Bilateral nephrostomy tubes currently draining with the right side being concentrated with some blood noted and left-sided nephrostomy is clear yellow. Objective - Vital Signs Vital signs: Vital Signs Temp 99 F 11/07/18 15:31 Pulse 63 11/07/18 15:31 Resp 20 11/07/18 15:31 BP 123/62 11/07/18 15:31 Pulse Ox 100 11/07/18 15:31 Intake & Output 11/06/18 11/07/18 11/07/18 18:59 06:59 18:59 Intake Total 300 125 540 Output Total 200 375 Balance 100 125 165 Weight 99.8 kg Intake: Intake, IV Titration 125 300 Amount 0.9% NaCl with KCl 40 Meq 25 200 /l 1,000 ml @ 25 mls/hr IV .Q24H [facility] Rx#: [id number] Cefepime 2 gm In Sodium 100 100 Chloride 0.9% 100 ml @ 200 mls/hr IVPB Q12HR [facility] Rx#:[id number] Oral 300 240 Output: Drainage 375 Left Back 250 Right Back 125 Urine 200 - Exam Gen: This is a 63-year-old male sitting up at the side of the bed in no acute distress. Temp is 98.7F, pulse is 59, respirations are 20, blood pressure is 113/58, oxygen saturation is 98 % on room air. HEENT: Head is atraumatic, normocephalic. Pupils equal, round. Sclerae is anicteric. NECK: Supple. No JVD. No lymphadenopathy. No thyromegaly. LUNGS: Diminished breath sounds at the bases with some rhonchi noted. Mild crackles noted at the bases. No intercostal retractions. HEART: S1, S2 muffled ABDOMEN: Soft. Obese. Bowel sounds are present. No masses. No tenderness. Bilateral nephrostomy tubes present on the back and draining yellow urine on the left side with right nephrostomy showing blood-tinged and concentrated urine EXTREMITIES: No pedal edema. No calf tenderness. NEUROLOGICAL: Patient is awake, alert and oriented 2-3. Flat affect. Cranial nerves 2 through 12 are grossly intact. - Labs CBC & Chem 7: 11/07/18 06:25 11/07/18 06:25 Labs: Abnormal Lab Results - Last 24 Hours (Table) 11/06/18 11/06/18 11/07/18 Range/Units 16:49 20:55 00:10 RBC (4.30-5.90) m/uL Hgb (13.0-17.5) gm/dL Hct (39.0-53.0) % Plt Count (150-450) k/uL Lymphocytes # (1.0-4.8) k/uL Sodium (137-145) mmol/L Carbon Dioxide (22-30) mmol/L BUN (9-20) mg/dL Creatinine (0.66-1.25) mg/dL Glucose (74-99) mg/dL POC Glucose (mg/dL) 256 H 257 H 181 H (75-99) mg/dL Calcium (8.4-10.2) mg/dL 11/07/18 11/07/18 11/07/18 Range/Units 06:25 06:25 06:30 RBC 2.99 L (4.30-5.90) m/uL Hgb 8.2 L (13.0-17.5) gm/dL Hct 24.3 L (39.0-53.0) % Plt Count 147 L (150-450) k/uL Lymphocytes # 0.1 L (1.0-4.8) k/uL Sodium 135 L (137-145) mmol/L Carbon Dioxide 20 L (22-30) mmol/L BUN 27 H (9-20) mg/dL Creatinine 1.43 H (0.66-1.25) mg/dL Glucose 135 H (74-99) mg/dL POC Glucose (mg/dL) 149 H (75-99) mg/dL Calcium 7.9 L (8.4-10.2) mg/dL 11/07/18 11/07/18 Range/Units 11:50 16:37 RBC (4.30-5.90) m/uL Hgb (13.0-17.5) gm/dL Hct (39.0-53.0) % Plt Count (150-450) k/uL Lymphocytes # (1.0-4.8) k/uL Sodium (137-145) mmol/L Carbon Dioxide (22-30) mmol/L BUN (9-20) mg/dL Creatinine (0.66-1.25) mg/dL Glucose (74-99) mg/dL POC Glucose (mg/dL) 144 H 195 H (75-99) mg/dL Calcium (8.4-10.2) mg/dL Microbiology - Last 24 Hours (Table) 11/05/18 11:50 Blood Culture - Preliminary Blood No Growth after 48 hours 11/04/18 12:35 Blood Culture Gram Stain - Final Blood Blood Culture - Final Klebsiella pneumoniae Assessment and Plan Assessment: Acute urinary tract infection with sepsis, present on admission Dislodged right nephrostomy tube, reinserted and draining Bilateral nephrostomy tube for possible obstructive uropathy, hydronephrosis secondary to bladder cancer High-grade muscle invasive urothelial carcinoma, being followed at [facility] Increased white count Anemia, normocytic Elevated lactic acid Hyponatremia Hypokalemia Troponin 0.072 of indeterminate origin Diabetes mellitus type 2 Gastroesophageal reflux disease Hypertension hyperlipidemia history of cataracts history of myocardial infarction History of cholecystectomy History of nephrostomy tube 2 History of permanent pacemaker Recommendations and discussion: Recommend continue current medications, management, and symptomatic treatment. Patient is currently on IV antibiotics in the form of cefepime and will continue. Will continue to monitor vital signs and labs closely. Patient states he currently lives at home alone and his daughter lives approximately 50 miles away. Possible placement in a rehab upon discharge. Social work and case management are following. Due to multiple complex medical issues prognosis is extremely guarded. Further recommendations to follow. Possible discharge in 24-48 hours.
[2018-11-07] MEDS: 0.9% NACL WITH KCL 40 MEQ/L 1,000 ML IV SCH (17:01)
[2018-11-07] MEDS: ATORVASTATIN 40 MG TAB PO SCH (19:47)
[2018-11-07 20:03] LABS: Glucose,Whole Blood 224 mg/dL (75-99)
[2018-11-07] MEDS: INSULIN DETEMIR (LEVEMIR) 100 UNIT/ML SYR SQ SCH (20:20)
--- NOTE | 2018-11-07 23:23 | PN ---
PROGRESS NOTE DATE OF SERVICE: 11/07/2018. REASON FOR FOLLOWUP: Complicated UTI. INTERVAL HISTORY: The patient is currently afebrile. The patient has been breathing comfortably. Denies any chest pain or shortness of breath or cough. No nausea, vomiting, abdominal pain. No diarrhea. EXAMINATION: Blood pressure is 121/58 with a pulse of 62, temperature 98.2. He is 100% on room air. General description is an elderly male up in the chair in no distress. Respiratory system: Unlabored breathing, decreased breath sounds in the bases. No wheeze. Heart S1, S2. Regular rate. Abdomen is soft. No tenderness. Extremities: No edema of the feet. LABS: Hemoglobin 8.1, white count 6.5 BUN of 27, creatinine 1.43. Blood culture repeat has been negative condition blood culture with Klebsiella pneumoniae sensitive pathogen. DIAGNOSTIC IMPRESSION AND PLAN: Patient with Klebsiella pneumoniae bacteremia secondary to urinary source in this patient who did have a complicated urinary tract infection. Urine did do Genna albicans. The patient antibiotic will be switched over to Rocephin 2 g daily. Continue with Diflucan and the patient continues to improve, plan to finish therapy with oral Cipro and close outpatient followup. MMODL / IJN: [id number] /
[2018-11-08 06:28] LABS: Glucose,Whole Blood 96 mg/dL (75-99)
[2018-11-08] MEDS: INSULIN ASPART (NovoLOG) 100 UNIT/ML VIAL SQ SCH ×4 (06:32→20:40)
[2018-11-08] MEDS: PANTOPRAZOLE 40 MG TABLET PO SCH (06:35)
[2018-11-08] MEDS: MESALAMINE 1,000 MG SUPP RECTAL SCH ×2 (08:24→19:27)
[2018-11-08] MEDS: METOPROLOL SUCCINATE (ER) 100 MG TAB.ER.24H PO SCH (08:24)
[2018-11-08] MEDS: ASPIRIN 81 MG PO SCH (08:24)
[2018-11-08] MEDS: FLUCONAZOLE 100 MG TAB PO SCH (08:25)
[2018-11-08] MEDS: MAGNESIUM OXIDE 400 MG TAB PO SCH ×2 (08:25→19:27)
[2018-11-08] MEDS: amLODIPine 10 MG TAB PO SCH (08:25)
[2018-11-08] MEDS: ENOXAPARIN 100 MG/ML SYRINGE SQ SCH (08:25)
[2018-11-08 11:34] LABS: Glucose,Whole Blood 109 mg/dL (75-99)
--- NOTE | 2018-11-08 13:41 | P.PN ---
Subjective Progress Note Date: 11/08/18 Principal diagnosis: This is a 63-year-old male who was recently admitted with a history of bladder cancer and possible UTI with sepsis and is being closely monitored. Patient's potassium was replaced yesterday and is currently 4.2. Nephrostomy tubes are currently draining bilaterally. Urology is following. Infectious disease is following. IV antibiotics were switched to cefepime per infectious disease recommendations. Awaiting finalization of repeat blood cultures for clearance of bacteremia. Urine culture show Genna albicans and Diflucan was ordered. Awaiting final report of cultures. No chest pain. No palpitations. Afebrile. 11/07/2018 Patient is sitting up at the side of the bed in no acute distress. Per nursing staff patient continues to be confused but redirectable. Patient was telling nursing staff that he would like to go home and was not aware that his family was looking into a possible rehab facility for continuous care. Patient denies any chest pain, palpitations, or shortness of breath at this time. Patient denies any nausea or vomiting and is tolerating diet. Patient is afebrile. Discussed with the patient about possible rehab placement and that is what his daughter would feel is most safe at this time and patient stated "sounds like a plan". Finalized blood cultures from 11/04/2018 shows Klebsiella pneumonia. Repeat blood cultures from 11/05/2018 are negative thus far and will await finalization. Bilateral nephrostomy tubes currently draining with the right side being concentrated with some blood noted and left-sided nephrostomy is clear yellow. 11/08/2018 Patient is sitting up in bed in no acute distress. Patient states that he is tired today and is eating but hasn't been eating much. Right nephrostomy tube is now draining clear yellow urine. Will continue to monitor closely. Infectious disease is following. ID has changed antibiotics to Rocephin as of yesterday. Repeat blood cultures continue to be negative at this time and awaiting finalization. If repeat blood cultures remain negative patient may continue a course of oral antibiotics upon discharge. Discussed with the case management about possible rehab placement upon discharge and currently there are places that will accept him. Patient denies any chest pain, shortness of breath, or palpitations at this time. Patient is afebrile. No reports of nausea or vomiting and tolerating diet at this time. Patient continues to have periods of confusion but will answer most questions appropriately. Patient has a delayed flat affect when speaking with him. Objective - Vital Signs Vital signs: Vital Signs Temp 98.5 F 11/08/18 12:00 Pulse 60 11/08/18 12:00 Resp 18 11/08/18 12:00 BP 119/49 11/08/18 12:00 Pulse Ox 97 11/08/18 12:00 Intake & Output 11/07/18 11/08/18 11/08/18 18:59 06:59 18:59 Intake Total 984 300 480 Output Total 750 850 200 Balance 234 -550 280 Weight 99.8 kg 103.9 kg Intake: Intake, IV Titration 300 Amount 0.9% NaCl with KCl 40 Meq 200 /l 1,000 ml @ 25 mls/hr IV .Q24H [facility] Rx#: [id number] Cefepime 2 gm In Sodium 100 Chloride 0.9% 100 ml @ 200 mls/hr IVPB Q12HR [facility] Rx#:[id number] Oral 684 300 480 Output: Drainage 750 850 200 Left Back 525 600 Right Back 225 250 200 - Exam Gen: This is a 63-year-old male sitting up in bed in no acute distress. Temp is 98.5 F, pulse is 60, respirations are 18, blood pressure is 119/49, oxygen saturation is 97 % on room air. HEENT: Head is atraumatic, normocephalic. Pupils equal, round. Sclerae is anicteric. NECK: Supple. No JVD. No lymphadenopathy. No thyromegaly. LUNGS: Diminished breath sounds at the bases with some rhonchi noted. No intercostal retractions. HEART: S1, S2 muffled ABDOMEN: Soft. Obese. Bowel sounds are present. No masses. No tenderness. Bilateral nephrostomy tubes present on the back and draining yellow urine bilaterally EXTREMITIES: No pedal edema. No calf tenderness. NEUROLOGICAL: Patient is awake, alert and oriented 2-3. Flat affect. Cranial nerves 2 through 12 are grossly intact. - Labs CBC & Chem 7: 11/07/18 06:25 11/07/18 06:25 Labs: Abnormal Lab Results - Last 24 Hours (Table) 11/07/18 11/07/18 11/08/18 Range/Units 16:37 19:52 11:32 POC Glucose (mg/dL) 195 H 224 H 109 H (75-99) mg/dL Microbiology - Last 24 Hours (Table) 11/05/18 11:50 Blood Culture - Preliminary Blood No Growth after 48 hours Assessment and Plan Assessment: Acute urinary tract infection with sepsis, present on admission Dislodged right nephrostomy tube, reinserted and draining Bilateral nephrostomy tube for possible obstructive uropathy, hydronephrosis secondary to bladder cancer High-grade muscle invasive urothelial carcinoma, being followed at [facility] Increased white count Anemia, normocytic Elevated lactic acid Hyponatremia Hypokalemia Troponin 0.072 of indeterminate origin Diabetes mellitus type 2 Gastroesophageal reflux disease Hypertension hyperlipidemia history of cataracts history of myocardial infarction History of cholecystectomy History of nephrostomy tube 2 History of permanent pacemaker Recommendations and discussion: Recommend continue current medications, management, and symptomatic treatment. Patient is currently on IV antibiotics in the form of Rocephin and will continue. Infectious disease recommendations would like to continue IV antibiotics for another 24 hours and awaiting repeat blood culture finalization. Repeat blood cultures thus far have been negative. Patient may possibly complete oral antibiotics upon discharge. Will continue to monitor vital signs and labs closely. Placement to a rehab facility upon discharge is likely. Social work and case management are following. Due to multiple complex medical issues prognosis is extremely guarded. Further recommendations to follow. Possible discharge in 24-48 hours.
[2018-11-08 16:41] LABS: Glucose,Whole Blood 142 mg/dL (75-99)
--- NOTE | 2018-11-08 18:42 | PN ---
PROGRESS NOTE DATE OF SERVICE: 11/08/2018 REASON FOR FOLLOWUP: Complicated UTI with secondary bacteremia Klebsiella pneumoniae. INTERVAL HISTORY: The patient is currently afebrile. The patient has been breathing comfortably. The patient denies having any chest pain or cough. No nausea, no vomiting, no abdominal pain or diarrhea. PHYSICAL EXAMINATION: Blood pressure 109/55 with a pulse of 60, temperature of 98.6. He is 97% on room air. General description is an elderly male lying in bed in no distress. RESPIRATORY SYSTEM: Unlabored breathing. Clear to auscultation anteriorly. HEART: S1, S2. Regular rate and rhythm. ABDOMEN: Soft. No tenderness. LAB: Follow-up blood culture has been negative. DIAGNOSTIC IMPRESSION AND PLAN: Patient with complicated urinary tract infection in this patient who did have evidence of klebsiella bacteremia. Follow-up blood culture has been negative. Currently on Rocephin and Diflucan with a plan to finish therapy with oral Cipro and Diflucan for another 10 days and close outpatient followup. MMODL / IJN: [id number] /
[2018-11-08] MEDS: ATORVASTATIN 40 MG TAB PO SCH (19:27)
[2018-11-08 20:38] LABS: Glucose,Whole Blood 195 mg/dL (75-99)
[2018-11-08] MEDS: INSULIN DETEMIR (LEVEMIR) 100 UNIT/ML SYR SQ SCH (20:39)
[2018-11-09] MEDS: 0.9% NACL WITH KCL 40 MEQ/L 1,000 ML IV SCH (00:38)
[2018-11-09 06:21] LABS: Glucose,Whole Blood 78 mg/dL (75-99)
[2018-11-09] MEDS: INSULIN ASPART (NovoLOG) 100 UNIT/ML VIAL SQ SCH ×4 (06:23→22:16)
[2018-11-09] MEDS: PANTOPRAZOLE 40 MG TABLET PO SCH (06:28)
[2018-11-09] MEDS: MAGNESIUM OXIDE 400 MG TAB PO SCH ×2 (09:10→22:15)
[2018-11-09] MEDS: FLUCONAZOLE 100 MG TAB PO SCH (09:10)
[2018-11-09] MEDS: MESALAMINE 1,000 MG SUPP RECTAL SCH ×2 (09:10→21:51)
[2018-11-09] MEDS: amLODIPine 10 MG TAB PO SCH (09:10)
[2018-11-09] MEDS: ENOXAPARIN 100 MG/ML SYRINGE SQ SCH (09:10)
[2018-11-09] MEDS: ASPIRIN 81 MG PO SCH (09:10)
[2018-11-09] MEDS: METOPROLOL SUCCINATE (ER) 100 MG TAB.ER.24H PO SCH (09:10)
[2018-11-09] MEDS: HYDROPHILIC CREAM 180 GM TUBE TOPICAL SCH (09:16)
[2018-11-09 11:57] LABS: Glucose,Whole Blood 129 mg/dL (75-99)
--- NOTE | 2018-11-09 12:20 | P.CONS ---
History of Present Illness - Reason for Consult Consult date: 11/09/18 bladder malignancy Requesting physician: Rogelio Sanchez - Chief Complaint confusion - History of Present Illness Mr. Hook is a very pleasant 63-year-old male pt who was diagnosed with high- grade, muscle invasive urothelial carcinoma in July 2018. He had left hydronep hrosis as well. He was referred to [facility] for management. He underwent bilateral nephrostomy tube placement. Plan was for patient to see a Oncologist locally and receive his neoadjuvant treatment but, unfortunately his family cancelled his initial appt, then a 2nd 3rd appts were cancelled due to admissions. Dr. Tim does have patient's [facility] paperwork and recommendations. Patient is admitted with complaints of confusion and lethargy, he is found to have positive urine and blood cultures. When seen today patient is in good spirits, mildly confused, he is oriented to self place time and some of his situation, he denies nausea or vomiting, he is anxious to eat his lunch, he does not remember having a fever he does not remember being brought to the hospital. He denies difficulty breathing, abdominal pain, cramping, acute changes in bowel habits, he states that the nurses take good care of his nephrostomy tubes in bag. Patient does have pain on his backside from laying so much, nursing reports some excoriation. He states that he can walk with an assistive device. He does want to participate in rehab so that he can b in better shape to tolerate chemotherapy. Review of Systems 14 point review of systems is negative except as stated in HPI Past Medical History Past Medical History: Cancer (Locally advanced bladder, July 2018), CVA/TIA, Diabetes Mellitus, GERD/Reflux, Hyperlipidemia, Hypertension, Myocardial Infarction (HI) Additional Past Medical History / Comment(s): cataracts pacemaker Last Myocardial Infarction Date:: 1996 History of Any Multi-Drug Resistant Organisms: None Reported Past Surgical History: Cholecystectomy, Pacemaker Additional Past Surgical History / Comment(s): nephrostomy tube x2 Type of Cardiac Device: Permanent Pacemaker Device Placement Date:: 2013 Past Psychological History: No Psychological Hx Reported Smoking Status: Former smoker Past Alcohol Use History: Rare Past Drug Use History: None Reported Additional History: Unable to obtain family history Medications and Allergies Home Medications Medication Instructions Recorded Confirmed Type traZODone HCL [Desyrel] 300 mg PO HS 11/09/15 11/04/18 History ALPRAZolam [Xanax] 0.5 mg PO TID 09/20/18 11/04/18 History Atorvastatin [Lipitor] 40 mg PO HS 09/20/18 11/04/18 History Metoprolol Succinate [Toprol XL] 200 mg PO DAILY 09/20/18 11/04/18 History Omeprazole [PriLOSEC] 20 mg PO DAILY 09/20/18 11/04/18 History amLODIPine [Norvasc] 10 mg PO DAILY 09/20/18 11/04/18 History Acetaminophen Tab [Tylenol Tab] 650 mg PO Q6H PRN 11/04/18 11/04/18 History Aspirin EC [Ecotrin Low Dose] 81 mg PO DAILY 11/04/18 11/04/18 History Docusate [Colace] 100 mg PO DAILY PRN 11/04/18 11/04/18 History Enoxaparin Sodium 100 mg SQ DAILY 11/04/18 11/04/18 History INSULIN LISPRO (HumaLOG) [HumaLOG] See Protocol SQ AC-TID 11/04/18 11/04/18 History Insulin Glargine [Lantus] 15 unit SQ HS 11/04/18 11/04/18 History Magnesium Oxide [Mag-Ox] 400 mg PO BID 11/04/18 11/04/18 History Mesalamine [Canasa] 1,000 mg RECTAL BID 11/04/18 11/04/18 History Nitroglycerin Sl Tabs [Nitrostat] 0.4 mg SUBLINGUAL Q5M PRN 11/04/18 11/04/18 History Nutrisource Fiber 4 gram PO BID 11/04/18 11/04/18 History Allergies Allergy/AdvReac Type Severity Reaction Status Date / Time No Known Allergies Allergy Verified 11/04/18 12:32 Physical Exam Vitals: Vital Signs Temp Pulse Resp BP Pulse Ox 11/09/18 08:00 98.3 F 58 L 18 130/58 99 11/09/18 03:53 60 18 11/09/18 03:52 99.4 F 60 18 125/58 98 11/08/18 23:29 60 16 11/08/18 23:27 99.9 F H 60 16 126/61 93 L 11/08/18 19:29 99.0 F 61 18 117/57 99 11/08/18 15:52 60 11/08/18 14:40 98.6 F 60 18 109/55 97 11/08/18 12:00 98.5 F 60 18 119/49 97 Intake and Output 11/08/18 11/09/18 11/09/18 22:59 06:59 14:59 Intake Total 222 Output Total 1800 Balance -1800 222 Intake: Oral 222 Output: Drainage 1800 Left Back 1350 Right Back 450 Other: Weight 103.1 kg - Constitutional General appearance: average body habitus, cooperative, no acute distress - EENT Eyes: anicteric sclerae, EOMI, normal appearance ENT: hearing grossly normal, normal oropharynx - Neck Neck: no lymphadenopathy - Respiratory Respiratory: bilateral: CTA - Cardiovascular Rhythm: regular Heart sounds: normal: S1, S2 Abnormal Heart Sounds: no systolic murmur, no diastolic murmur, no rub, no S3 Gallop, no S4 Gallop, no click, no other leg Peripheral Edema: bilateral: None - Gastrointestinal General gastrointestinal: no absent bowel sounds, no decreased bowel sounds, no distended, no hepatomegaly, no hyperactive bowel sounds, normal bowel sounds, no organomegaly, no rigid, no scaphoid, soft, no splenomegaly, no tenderness, no umbilical hernia, no ventral hernia - Integumentary Superior area of the buttocks skin irritation. Bilateral nephrostomy tubes - Neurologic Neurologic: CNII-XII intact - Musculoskeletal Musculoskeletal: generalized weakness, strength equal bilaterally - Psychiatric Psychiatric: A&O x's 3, appropriate affect Results CBC & Chem 7: 11/07/18 06:25 11/07/18 06:25 Labs: Abnormal Lab Results - Last 24 Hours (Table) 11/08/18 11/08/18 11/08/18 Range/Units 11:32 16:37 20:37 POC Glucose (mg/dL) 109 H 142 H 195 H (75-99) mg/dL Microbiology - Last 24 Hours (Table) 11/05/18 11:50 Blood Culture - Preliminary Blood No Growth after 72 hours Assessment and Plan (1) Sepsis Narrative/Plan: Blood and urine cultures positive. Patient is being treated with antibiotics. He is still slightly confused today. Current Visit: Yes Status: Acute Priority: High Code(s): A41.9 - SEPSIS, UNSPECIFIED ORGANISM SNOMED Code(s): 46295646 (2) Malignant neoplasm of bladder Narrative/Plan: Unfortunately patient has cancelled/missed several appointments that were scheduled with Dr. Tim over the last month. Dr. Tim does have the patient's information from [facility]. Now that we have been able to see the patient, we can anticipate and plan for neoadjuvant chemotherapy. Encouraged patient that he needs to be stronger for toleration of chemotherapy and surgical procedure for cure of his cancer. Patient is in agreement with this plan and motivated. We will plan for a follow-up in 3 weeks after discharge from the hospital. Hopefully this gives patient enough time to rehabilitate. Current Visit: Yes Status: Acute Priority: High Code(s): C67.9 - MALIGNANT NEOPLASM OF BLADDER, UNSPECIFIED SNOMED Code(s): 609893539 (3) Weakness Narrative/Plan: Deconditioning from multiple hospitalizations, malignancy, procedures and now sepsis. Plan is for rehabilitation post-hospitalization. Current Visit: Yes Status: Acute Priority: High Code(s): R53.1 - WEAKNESS SNOMED Code(s): 73316565
[2018-11-09] MEDS: HYDROcodone/APAP 5-325MG 1 EACH TAB PO PRN (16:03)
[2018-11-09 16:55] LABS: Glucose,Whole Blood 191 mg/dL (75-99)
[2018-11-09 20:26] LABS: Glucose,Whole Blood 173 mg/dL (75-99)
[2018-11-09] MEDS: ATORVASTATIN 40 MG TAB PO SCH (22:16)
[2018-11-09] MEDS: INSULIN DETEMIR (LEVEMIR) 100 UNIT/ML SYR SQ SCH (22:16)
--- NOTE | 2018-11-10 01:51 | P.PN ---
Subjective Progress Note Date: 11/09/18 Principal diagnosis: Acute urinary tract infection with sepsis, present on admission Dislodged right nephrostomy tube, reinserted and draining Bilateral nephrostomy tube for possible obstructive uropathy, hydronephrosis secondary to bladder cancer High-grade muscle invasive urothelial carcinoma, being followed at [facility] This is a 63-year-old male who was recently admitted with a history of bladder cancer and possible UTI with sepsis and is being closely monitored. Patient's potassium was replaced yesterday and is currently 4.2. Nephrostomy tubes are currently draining bilaterally. Urology is following. Infectious disease is following. IV antibiotics were switched to cefepime per infectious disease recommendations. Awaiting finalization of repeat blood cultures for clearance of bacteremia. Urine culture show Genna albicans and Diflucan was ordered. Awaiting final report of cultures. No chest pain. No palpitations. Afebrile. 11/07/2018 Patient is sitting up at the side of the bed in no acute distress. Per nursing staff patient continues to be confused but redirectable. Patient was telling nursing staff that he would like to go home and was not aware that his family was looking into a possible rehab facility for continuous care. Patient denies any chest pain, palpitations, or shortness of breath at this time. Patient denies any nausea or vomiting and is tolerating diet. Patient is afebrile. Discussed with the patient about possible rehab placement and that is what his daughter would feel is most safe at this time and patient stated "sounds like a plan". Finalized blood cultures from 11/04/2018 shows Klebsiella pneumonia. Repeat blood cultures from 11/05/2018 are negative thus far and will await finalization. Bilateral nephrostomy tubes currently draining with the right side being concentrated with some blood noted and left-sided nephrostomy is clear yellow. 11/08/2018 Patient is sitting up in bed in no acute distress. Patient states that he is tired today and is eating but hasn't been eating much. Right nephrostomy tube is now draining clear yellow urine. Will continue to monitor closely. Infectious disease is following. ID has changed antibiotics to Rocephin as of yesterday. Repeat blood cultures continue to be negative at this time and awaiting finalization. If repeat blood cultures remain negative patient may continue a course of oral antibiotics upon discharge. Discussed with the case management about possible rehab placement upon discharge and currently there are places that will accept him. Patient denies any chest pain, shortness of breath, or palpitations at this time. Patient is afebrile. No reports of nausea or vomiting and tolerating diet at this time. Patient continues to have periods of confusion but will answer most questions appropriately. Patient has a delayed flat affect when speaking with him. 11/09/2018 Patient is lying in the bed comfortably. Urine from the right nephrostomy tube is clear. Currently on antibiotics in the form was seen as per ID recomm endations. Repeat blood cultures and final antibiotic recommendations per ID is pending. Otherwise patient requested to be seen by oncology since he is not following with his oncologist at [facility]. Otherwise regarding discharge planning, patient was seen by case monitor and is following the placement. Patient is otherwise having generalized weakness. No fever no chills. No naus ea vomiting or abdominal pain. Tolerating oral diet. Current medications reviewed. Objective - Vital Signs Vital signs: Vital Signs Temp 98.4 F 11/09/18 15:05 Pulse 61 11/09/18 15:05 Resp 20 11/09/18 15:05 BP 107/53 11/09/18 15:05 Pulse Ox 97 11/09/18 15:05 Intake & Output 11/09/18 11/09/18 11/10/18 06:59 18:59 06:59 Intake Total 572 Output Total 1800 1300 Balance -1800 -728 Weight 103.1 kg Intake: Intake, IV Titration 350 Amount 0.9% NaCl with KCl 40 Meq 300 /l 1,000 ml @ 25 mls/hr IV .Q24H [facility] Rx#: [id number] cefTRIAXone 2 gm In 50 Sodium Chloride 0.9% 50 ml @ 100 mls/hr IVPB Q24HR [facility] Rx#:[id number] Oral 222 Output: Drainage 1800 Left Back 1350 Right Back 450 Urine 1300 - Exam Gen: This is a 63-year-old male sitting up in bed in no acute distress. HEENT: Head is atraumatic, normocephalic. Pupils equal, round. Sclerae is anicteric. NECK: Supple. No JVD. No lymphadenopathy. No thyromegaly. LUNGS: Diminished breath sounds at the bases with some rhonchi noted. No intercostal retractions. HEART: S1, S2 muffled ABDOMEN: Soft. Obese. Bowel sounds are present. No masses. No tenderness. Bilateral nephrostomy tubes present on the back and draining yellow urine bilaterally EXTREMITIES: No pedal edema. No calf tenderness. NEUROLOGICAL: Patient is awake, alert and oriented 2-3. Flat affect. Cranial nerves 2 through 12 are grossly intact. - Labs CBC & Chem 7: 11/07/18 06:25 11/07/18 06:25 Labs: Abnormal Lab Results - Last 24 Hours (Table) 11/08/18 11/09/18 11/09/18 Range/Units 20:37 11:26 16:40 POC Glucose (mg/dL) 195 H 129 H 191 H (75-99) mg/dL Microbiology - Last 24 Hours (Table) 11/05/18 11:50 Blood Culture - Preliminary Blood No Growth after 96 hours Assessment and Plan Assessment: Acute urinary tract infection with sepsis, present on admission Dislodged right nephrostomy tube, reinserted and draining Bilateral nephrostomy tube for possible obstructive uropathy, hydronephrosis secondary to bladder cancer High-grade muscle invasive urothelial carcinoma, being followed at [facility] Increased white count Anemia, normocytic Elevated lactic acid Hyponatremia Hypokalemia Troponin 0.072 of indeterminate origin Diabetes mellitus type 2 Gastroesophageal reflux disease Hypertension hyperlipidemia history of cataracts history of myocardial infarction History of cholecystectomy History of nephrostomy tube 2 History of permanent pacemaker Recommendations and discussion: Recommend continue current medications, management, and symptomatic treatment. Patient is currently on IV antibiotics in the form of Rocephin and will continue. Infectious disease recommendations would like to continue IV antibiotics for another 24 hours and awaiting repeat blood culture finalization. Repeat blood cultures thus far have been negative. Patient may possibly complete oral antibiotics upon discharge. Will continue to monitor vital signs and labs closely. Placement to a rehab facility upon discharge is likely. Social work and case management are following. Due to multiple complex medical issues prognosis is extremely guarded. Further recommendations to follow. Possible discharge in 24-48 hours. Time with Patient: Greater than 30
[2018-11-10 06:01] LABS: Basophils % (A) 1 %; Eosinophils # (A) 0.1 k/uL (0-0.7); Eosinophils % (A) 1 %; HCT 24.5 % (39.0-53.0); HGB 8.1 gm/dL (13.0-17.5); Lymphocytes # (A) 0.3 k/uL (1.0-4.8); Lymphocytes % (A) 4 %; MCH 26.9 pg (25.0-35.0); MCHC 33.1 g/dL (31.0-37.0); MCV 81.3 fL (80.0-100.0); Mean Platelet Volume 7.4; Monocytes # (A) 0.5 k/uL (0-1.0); Monocytes % (A) 7 %; Neutrophils # (A) 6.1 k/uL (1.3-7.7); Neutrophils % (A) 86 %; Platelet Count 266 k/uL (150-450); Poikilocytosis Slight; RBC 3.01 m/uL (4.30-5.90); RDW 15.5 % (11.5-15.5); WBC 7.1 k/uL (3.8-10.6)
[2018-11-10 06:13] LABS: Glucose,Whole Blood 138 mg/dL (75-99)
[2018-11-10 06:16] LABS: Calcium 7.6 mg/dL (8.4-10.2); Potassium 3.5 mmol/L (3.5-5.1)
[2018-11-10] MEDS: PANTOPRAZOLE 40 MG TABLET PO SCH (06:26)
[2018-11-10] MEDS: INSULIN ASPART (NovoLOG) 100 UNIT/ML VIAL SQ SCH ×4 (06:26→20:20)
[2018-11-10] MEDS: HYDROcodone/APAP 5-325MG 1 EACH TAB PO PRN ×2 (06:38→23:02)
[2018-11-10] MEDS: 0.9% NACL WITH KCL 40 MEQ/L 1,000 ML IV SCH (07:52)
[2018-11-10] MEDS: MAGNESIUM OXIDE 400 MG TAB PO SCH ×2 (07:59→20:21)
[2018-11-10] MEDS: amLODIPine 10 MG TAB PO SCH (07:59)
[2018-11-10] MEDS: ASPIRIN 81 MG PO SCH (07:59)
[2018-11-10] MEDS: MESALAMINE 1,000 MG SUPP RECTAL SCH ×2 (08:00→20:21)
[2018-11-10] MEDS: METOPROLOL SUCCINATE (ER) 100 MG TAB.ER.24H PO SCH (08:00)
[2018-11-10] MEDS: FLUCONAZOLE 100 MG TAB PO SCH (08:00)
[2018-11-10] MEDS: ENOXAPARIN 100 MG/ML SYRINGE SQ SCH (08:01)
[2018-11-10 11:53] LABS: Glucose,Whole Blood 109 mg/dL (75-99)
[2018-11-10 17:01] LABS: Glucose,Whole Blood 146 mg/dL (75-99)
[2018-11-10 20:15] LABS: Glucose,Whole Blood 157 mg/dL (75-99)
[2018-11-10] MEDS: INSULIN DETEMIR (LEVEMIR) 100 UNIT/ML SYR SQ SCH (20:20)
[2018-11-10] MEDS: ATORVASTATIN 40 MG TAB PO SCH (20:21)
--- NOTE | 2018-11-11 00:33 | PN ---
PROGRESS NOTE DATE OF SERVICE: 11/10/2018. REASON FOR FOLLOWUP: Klebsiella bacteremia secondary to complicated UTI. INTERVAL HISTORY: The patient is currently afebrile. Has been breathing comfortably. Denies having any chest pain. No cough. No nausea, vomiting. No abdominal pain. No diarrhea. PHYSICAL EXAMINATION: Blood pressure is 138/64 with a pulse of 73, temperature 98.7. He is 97% on room air. General description is an elderly male lying in bed in no distress. Respiratory system: Unlabored breathing, clear to auscultation anteriorly. Heart S1, S2. Regular rate and rhythm. Abdomen soft. No tenderness. Extremities: No edema of the feet. LABS: Hemoglobin 8.1, white count 7.9. BUN of 16, creatinine 1.19. DIAGNOSTIC IMPRESSION AND PLAN: Patient with Klebsiella bacteremia secondary to complicated urinary tract infection. The patient's follow up blood culture has been negative. The patient is on trazodone that contraindicate the use of Cipro in the outpatient setting. Hence, we will recommend switching over to oral Ceftin 500 mg twice a day for another 10 days along with oral Diflucan to complete his antibiotic therapy and close outpatient followup. MMODL / IJN: [id number] /
[2018-11-11 02:16] VITALS: TEMP 98.6
[2018-11-11] MEDS: 0.9% NACL WITH KCL 40 MEQ/L 1,000 ML IV SCH (02:28)
--- NOTE | 2018-11-11 03:06 | P.PN ---
Subjective Progress Note Date: 11/10/18 Principal diagnosis: Acute urinary tract infection with sepsis, present on admission Dislodged right nephrostomy tube, reinserted and draining Bilateral nephrostomy tube for possible obstructive uropathy, hydronephrosis secondary to bladder cancer High-grade muscle invasive urothelial carcinoma, being followed at [facility] This is a 63-year-old male who was recently admitted with a history of bladder cancer and possible UTI with sepsis and is being closely monitored. Patient's potassium was replaced yesterday and is currently 4.2. Nephrostomy tubes are currently draining bilaterally. Urology is following. Infectious disease is following. IV antibiotics were switched to cefepime per infectious disease recommendations. Awaiting finalization of repeat blood cultures for clearance of bacteremia. Urine culture show Genna albicans and Diflucan was ordered. Awaiting final report of cultures. No chest pain. No palpitations. Afebrile. 11/07/2018 Patient is sitting up at the side of the bed in no acute distress. Per nursing staff patient continues to be confused but redirectable. Patient was telling nursing staff that he would like to go home and was not aware that his family was looking into a possible rehab facility for continuous care. Patient denies any chest pain, palpitations, or shortness of breath at this time. Patient denies any nausea or vomiting and is tolerating diet. Patient is afebrile. Discussed with the patient about possible rehab placement and that is what his daughter would feel is most safe at this time and patient stated "sounds like a plan". Finalized blood cultures from 11/04/2018 shows Klebsiella pneumonia. Repeat blood cultures from 11/05/2018 are negative thus far and will await finalization. Bilateral nephrostomy tubes currently draining with the right side being concentrated with some blood noted and left-sided nephrostomy is clear yellow. 11/08/2018 Patient is sitting up in bed in no acute distress. Patient states that he is tired today and is eating but hasn't been eating much. Right nephrostomy tube is now draining clear yellow urine. Will continue to monitor closely. Infectious disease is following. ID has changed antibiotics to Rocephin as of yesterday. Repeat blood cultures continue to be negative at this time and awaiting finalization. If repeat blood cultures remain negative patient may continue a course of oral antibiotics upon discharge. Discussed with the case management about possible rehab placement upon discharge and currently there are places that will accept him. Patient denies any chest pain, shortness of breath, or palpitations at this time. Patient is afebrile. No reports of nausea or vomiting and tolerating diet at this time. Patient continues to have periods of confusion but will answer most questions appropriately. Patient has a delayed flat affect when speaking with him. 11/09/2018 Patient is lying in the bed comfortably. Urine from the right nephrostomy tube is clear. Currently on antibiotics in the form was seen as per ID recomm endations. Repeat blood cultures and final antibiotic recommendations per ID is pending. Otherwise patient requested to be seen by oncology since he is not following with his oncologist at [facility]. Otherwise regarding discharge planning, patient was seen by nurse case management and is following the placement. Patient is otherwise having generalized weakness. No fever no chills. No naus ea vomiting or abdominal pain. Tolerating oral diet. 11/10/2018 Patient is currently awake alert oriented 3. Lying in the bed comfortably. Nephrostomy tube is in place. Continued on antibiotics f in the form of ceftriaxone and ID is following. Anticipate discharge next 24 hours with final antibiotic recommendations and discharge planning, home with home care versus rehab. No chest pain no shortness of breath. Tolerating oral diet. Oncology has seen the patient. Current medications reviewed. Objective - Vital Signs Vital signs: Vital Signs Temp 98.2 F 11/10/18 08:00 Pulse 60 11/10/18 16:00 Resp 16 11/10/18 16:00 BP 109/59 11/10/18 16:00 Pulse Ox 99 11/10/18 16:00 Intake & Output 11/09/18 11/10/18 11/10/18 18:59 06:59 18:59 Intake Total 572 482 Output Total 1300 1375 1100 Balance -728 -893 -1100 Intake: Intake, IV Titration 350 250 Amount 0.9% NaCl with KCl 40 Meq 300 250 /l 1,000 ml @ 25 mls/hr IV .Q24H [facility] Rx#: [id number] cefTRIAXone 2 gm In 50 Sodium Chloride 0.9% 50 ml @ 100 mls/hr IVPB Q24HR [facility] Rx#:[id number] Oral 222 232 Output: Drainage 1375 1100 Left Back 900 650 Right Back 475 450 Urine 1300 - Exam Gen: This is a 63-year-old male sitting up in bed in no acute distress. HEENT: Head is atraumatic, normocephalic. Pupils equal, round. Sclerae is anicteric. NECK: Supple. No JVD. No lymphadenopathy. No thyromegaly. LUNGS: Diminished breath sounds at the bases with some rhonchi noted. No intercostal retractions. HEART: S1, S2 muffled ABDOMEN: Soft. Obese. Bowel sounds are present. No masses. No tenderness. Bilateral nephrostomy tubes present on the back and draining yellow urine bilaterally EXTREMITIES: No pedal edema. No calf tenderness. NEUROLOGICAL: Patient is awake, alert and oriented 2-3. Flat affect. Cranial nerves 2 through 12 are grossly intact. - Labs CBC & Chem 7: 11/10/18 05:03 11/10/18 05:03 Labs: Abnormal Lab Results - Last 24 Hours (Table) 11/09/18 11/10/18 11/10/18 Range/Units 20:24 05:03 05:03 RBC 3.01 L (4.30-5.90) m/uL Hgb 8.1 L (13.0-17.5) gm/dL Hct 24.5 L (39.0-53.0) % Lymphocytes # 0.3 L (1.0-4.8) k/uL Glucose 130 H (74-99) mg/dL POC Glucose (mg/dL) 173 H (75-99) mg/dL Calcium 7.6 L (8.4-10.2) mg/dL 11/10/18 11/10/18 11/10/18 Range/Units 06:07 11:42 16:50 RBC (4.30-5.90) m/uL Hgb (13.0-17.5) gm/dL Hct (39.0-53.0) % Lymphocytes # (1.0-4.8) k/uL Glucose (74-99) mg/dL POC Glucose (mg/dL) 138 H 109 H 146 H (75-99) mg/dL Calcium (8.4-10.2) mg/dL Microbiology - Last 24 Hours (Table) 11/05/18 11:50 Blood Culture - Preliminary Blood No Growth after 120 hours Assessment and Plan Assessment: Acute urinary tract infection with sepsis, present on admission Dislodged right nephrostomy tube, reinserted and draining Bilateral nephrostomy tube for possible obstructive uropathy, hydronephrosis secondary to bladder cancer High-grade muscle invasive urothelial carcinoma, being followed at [facility] Increased white count Anemia, normocytic Elevated lactic acid Hyponatremia Hypokalemia Troponin 0.072 of indeterminate origin Diabetes mellitus type 2 Gastroesophageal reflux disease Hypertension hyperlipidemia history of cataracts history of myocardial infarction History of cholecystectomy History of nephrostomy tube 2 History of permanent pacemaker Recommendations and discussion: Recommend continue current medications, management, and symptomatic treatment. Patient is currently on IV antibiotics in the form of Rocephin and will continue. Infectious disease recommendations would like to continue IV antibiotics for another 24 hours and awaiting repeat blood culture finalization. Repeat blood cultures thus far have been negative. Patient may possibly complete oral antibiotics upon discharge. Will continue to monitor vital signs and labs closely. Placement to a rehab facility upon discharge is likely. Social work and case management are following. Due to multiple complex medical issues prognosis is extremely guarded. Further recommendations to follow. Possible discharge in 24-48 hours. Time with Patient: Greater than 30
[2018-11-11] MEDS: HYDROcodone/APAP 5-325MG 1 EACH TAB PO PRN (03:57)
[2018-11-11 06:48] LABS: Glucose,Whole Blood 69 mg/dL (75-99)
[2018-11-11] MEDS: PANTOPRAZOLE 40 MG TABLET PO SCH (06:50)
[2018-11-11] MEDS: INSULIN ASPART (NovoLOG) 100 UNIT/ML VIAL SQ SCH ×2 (06:50→12:11)
[2018-11-11 07:07] LABS: Glucose,Whole Blood 72 mg/dL (75-99)
[2018-11-11] MEDS: METOPROLOL SUCCINATE (ER) 100 MG TAB.ER.24H PO SCH (08:55)
[2018-11-11] MEDS: FLUCONAZOLE 100 MG TAB PO SCH (08:55)
[2018-11-11] MEDS: MAGNESIUM OXIDE 400 MG TAB PO SCH (08:56)
[2018-11-11] MEDS: ASPIRIN 81 MG PO SCH (08:56)
[2018-11-11] MEDS: ENOXAPARIN 100 MG/ML SYRINGE SQ SCH (08:56)
[2018-11-11] MEDS: MESALAMINE 1,000 MG SUPP RECTAL SCH (08:56)
[2018-11-11] MEDS: amLODIPine 10 MG TAB PO SCH (08:59)
[2018-11-11 09:09] VITALS: RESP 16
[2018-11-11 11:35] LABS: Glucose,Whole Blood 115 mg/dL (75-99)
[2018-11-11 12:21] VITALS: BP 133/60; PULSE 59
[2018-11-11 13:21] VITALS: BMI 27.6
--- NOTE | 2018-11-11 13:29 | P.PN ---
Subjective Progress Note Date: 11/11/18 Principal diagnosis: Sepsis Afebrile, Dr. tim has seen and evaluated patient this am Objective - Vital Signs Vital signs: Vital Signs Temp 98.6 F 11/11/18 04:00 Pulse 59 L 11/11/18 12:00 Resp 16 11/11/18 12:00 BP 133/60 11/11/18 12:00 Pulse Ox 100 11/11/18 12:00 Intake & Output 11/10/18 11/11/18 11/11/18 18:59 06:59 18:59 Intake Total 75 720 Output Total 1100 1675 1300 Balance -1100 -1600 -580 Weight 103.2 kg 103.2 kg Intake: Intake, IV Titration 75 Amount 0.9% NaCl with KCl 40 Meq 75 /l 1,000 ml @ 25 mls/hr IV .Q24H [facility] Rx#: [id number] Oral 720 Output: Drainage 1100 1675 Left Back 650 950 Right Back 450 725 Urine 1300 - Exam - Constitutional General appearance: average body habitus, cooperative, no acute distress - EENT Eyes: anicteric sclerae, EOMI, normal appearance ENT: hearing grossly normal, normal oropharynx - Neck Neck: no lymphadenopathy - Respiratory Respiratory: bilateral: CTA - Cardiovascular Rhythm: regular Heart sounds: normal: S1, S2 Abnormal Heart Sounds: no systolic murmur, no diastolic murmur, no rub, no S3 Gallop, no S4 Gallop, no click, no other leg Peripheral Edema: bilateral: None - Gastrointestinal General gastrointestinal: no absent bowel sounds, no decreased bowel sounds, no distended, no hepatomegaly, no hyperactive bowel sounds, normal bowel sounds, no organomegaly, no rigid, no scaphoid, soft, no splenomegaly, no tenderness, no umbilical hernia, no ventral hernia - Integumentary Superior area of the buttocks skin irritation. Bilateral nephrostomy tubes - Neurologic Neurologic: CNII-XII intact - Musculoskeletal Musculoskeletal: generalized weakness, strength equal bilaterally - Psychiatric Psychiatric: A&O x's 3, appropriate affect - Labs CBC & Chem 7: 11/10/18 05:03 11/10/18 05:03 Labs: Abnormal Lab Results - Last 24 Hours (Table) 11/10/18 11/10/18 11/11/18 Range/Units 16:50 20:12 06:46 POC Glucose (mg/dL) 146 H 157 H 69 L (75-99) mg/dL 11/11/18 11/11/18 Range/Units 07:05 11:32 POC Glucose (mg/dL) 72 L 115 H (75-99) mg/dL Microbiology - Last 24 Hours (Table) 11/05/18 11:50 Blood Culture - Preliminary Blood No Growth after 120 hours Assessment and Plan Plan: Assessment/Recommendations:: Sepsis - Blood and urine cultures positive. - Treatment with antibiotics. - Agitated today Current Visit: Yes Status: Acute Priority: High Code(s): A41.9 - SEPSIS, UNSPECIFIED ORGANISM SNOMED Code(s): 00604410 Malignant neoplasm of bladder - Unfortunately patient has cancelled/missed several appointments that were scheduled with Dr. Tim over the last month. - Dr. Tim does have the patient's information from [facility]. Now that we have been able to see the patient, we can anticipate and plan for neoadjuvant chemotherapy. - Re-iteration to patient that he needs to be stronger for toleration of chemotherapy and surgical procedure for cure of his cancer. - Patient is in agreement with this plan and motivated. - We will plan for a follow-up in 3 weeks after discharge from the hospital. Hopefully this gives patient enough time to rehabilitate. Current Visit: Yes Status: Acute Priority: High Code(s): C67.9 - MALIGNANT NEOPLASM OF BLADDER, UNSPECIFIED SNOMED Code(s): 202396375 Weakness - Deconditioning from multiple hospitalizations, malignancy, procedures and now sepsis. - Rec PT/OT evaluation and treatment during hospitaliztion and encourage to get up out of bed with assistance to decrease further myopathy - Plan is for rehabilitation post-hospitalization will be needed Current Visit: Yes Status: Acute Priority: High Code(s): R53.1 - WEAKNESS SNOMED Code(s): 48532874 Physician Attestation: I have performed the full physical examination and reviewed the full history of this patient, as well as pertinent findings. I have created the compled impression and recommendations. I agree with the above dictation by JUNIOR Yi. This dictation has been written as a scribe.
--- NOTE | 2018-11-11 14:02 | P.DS ---
Providers Date of admission: 11/04/18 15:33 Expected date of discharge: 11/11/18 Attending physician: Rogelio Sanchez Consults: 11/04/18 15:33 Consult Physician Stat Consulting Provider: Feliz See Consult Reason/Comments: Urinary tract infection, nephrostomy tubes Do you want consulting provider notified?: Yes Consult Physician Stat Consulting Provider: Yefri Diallo Consult Reason/Comments: Replace the nephrostomy tube Do you want consulting provider notified?: Yes 11/04/18 18:20 Consult Physician Routine Consulting Provider: Laurent Slade Consult Reason/Comments: uti sepsis Do you want consulting provider notified?: Yes 11/08/18 17:54 Consult Physician Routine Consulting Provider: Derian Tim Consult Reason/Comments: Bladder Cancer Do you want consulting provider notified?: Yes Primary care physician: [place] Course: Final Diagnosis Acute urinary tract infection with sepsis, present on admission Dislodged right nephrostomy tube Bilateral nephrostomy tubes for possible obstructive uropathy, hydronephrosis secondary to bladder cancer High-grade muscle invasive urothelial carcinoma Increased white blood count Elevated lactic acid Anemia, normocytic hyponatremia hypokalemia History of cataracts Hypertension Hyperlipidemia Diabetes mellitus type 2 Troponin 0.07 to of indeterminate origin History of myocardial infarction History of cholecystectomy History of nephrostomy tubes 2 History of permanent pacemaker Gastroesophageal reflux disease Discharge disposition Patient is being discharged in a stable condition with guarded prognosis to [facility] facility in [place] for continued PT/OT therapy. Patient will continue with a short course of oral antibiotics in the form of Ceftin as well as Diflucan per infectious disease recommendations. Total time taken is 35 minutes. History of present illness This is a 63-year-old male who was recently admitted with possible UTI and sepsis and was being closely monitored. Patient does have a history of bladder cancer and during admission was found to have the right nephrostomy tube dislodged which was reinserted and has been draining clear yellow urine. Patient was supposed to be following up at of with oncology but would like to be having treatment out here and patient will be following up with Dr. Tim in the outpatient setting in 2-3 weeks after discharge. Infectious disease was following. Patient's repeat blood cultures have been negative and patient will go home on oral antibiotic in the form of Ceftin as well as Diflucan per infectious disease recommendations upon discharge. Patient denies any chest pain, shortness of breath, or palpitations at this time. Patient has remained afebrile. Patient denies any nausea or vomiting and has been tolerating diet. Patient has moments of confusion but is alert and oriented 2-3. Currently patient's condition is stable with much improvement and will be going to [facility] in [place] for continued PT/OT therapy. Guarded prognosis. On exam vital signs are stable. Blood pressure is 105/56, pulse is 66, respirations are 16, oxygen saturation is 95% on room air, temp is 98.6F. Cardio S1 and S2 are muffled. Respiratory system shows diminished breath sounds at the bases otherwise clear to auscultation. Abdomen is soft and nontender. Nervous system shows no focal deficits with mild diffuse weakness. Please refer to medication reconciliation sheet for a list of medications. Patient Condition at Discharge: Fair Plan - Discharge Summary New Discharge Prescriptions: New Cefuroxime Axetil [Ceftin] 500 mg PO BID #20 tab Fluconazole [Diflucan] 100 mg PO DAILY 10 Days #10 tab HYDROcodone/APAP 5-325MG [[place] 5-325] 1 each PO Q6HR PRN #6 tab PRN Reason: Pain INSULIN ASPART (NovoLOG) [NovoLOG (formulary)] 0 unit SQ ACHS vial Pantoprazole [Protonix] 40 mg PO AC-BRKFST tablet. Hydrophilic Cream [Triad Cream] 1 applic TOPICAL TuThSa applic Continue amLODIPine [Norvasc] 10 mg PO DAILY Metoprolol Succinate [Toprol XL] 200 mg PO DAILY Atorvastatin [Lipitor] 40 mg PO HS Docusate [Colace] 100 mg PO DAILY PRN PRN Reason: Constipation Nitroglycerin Sl Tabs [Nitrostat] 0.4 mg SUBLINGUAL Q5M PRN PRN Reason: Chest Pain INSULIN LISPRO (HumaLOG) [humaLOG] See Protocol SQ AC-TID Nutrisource Fiber 4 gram PO BID Aspirin EC [Ecotrin Low Dose] 81 mg PO DAILY Insulin Glargine [Lantus] 15 unit SQ HS Acetaminophen Tab [Tylenol] 650 mg PO Q6H PRN PRN Reason: Pain Or Fever > 100.5 Enoxaparin Sodium 100 mg SQ DAILY Mesalamine [Canasa] 1,000 mg RECTAL BID Magnesium Oxide [Mag-Ox] 400 mg PO BID traZODone HCL [Desyrel] 300 mg PO HS #6 tab ALPRAZolam [Xanax] 0.5 mg PO TID #6 tab Discontinued Omeprazole [PriLOSEC] 20 mg PO DAILY Discharge Medication List Atorvastatin [Lipitor] 40 mg PO HS 09/20/18 [History] Metoprolol Succinate [Toprol XL] 200 mg PO DAILY 09/20/18 [History] amLODIPine [Norvasc] 10 mg PO DAILY 09/20/18 [History] Acetaminophen Tab [Tylenol] 650 mg PO Q6H PRN 11/04/18 [History] Aspirin EC [Ecotrin Low Dose] 81 mg PO DAILY 11/04/18 [History] Docusate [Colace] 100 mg PO DAILY PRN 11/04/18 [History] Enoxaparin Sodium 100 mg SQ DAILY 11/04/18 [History] INSULIN LISPRO (HumaLOG) [humaLOG] See Protocol SQ AC-TID 11/04/18 [History] Insulin Glargine [Lantus] 15 unit SQ HS 11/04/18 [History] Magnesium Oxide [Mag-Ox] 400 mg PO BID 11/04/18 [History] Mesalamine [Canasa] 1,000 mg RECTAL BID 11/04/18 [History] Nitroglycerin Sl Tabs [Nitrostat] 0.4 mg SUBLINGUAL Q5M PRN 11/04/18 [History] Nutrisource Fiber 4 gram PO BID 11/04/18 [History] ALPRAZolam [Xanax] 0.5 mg PO TID #6 tab 11/11/18 [Rx] Cefuroxime Axetil [Ceftin] 500 mg PO BID #20 tab 11/11/18 [Rx] Fluconazole [Diflucan] 100 mg PO DAILY 10 Days #10 tab 11/11/18 [Rx] HYDROcodone/APAP 5-325MG [[place] 5-325] 1 each PO Q6HR PRN #6 tab 11/11/18 [Rx] Hydrophilic Cream [Triad Cream] 1 applic TOPICAL TuThSa applic 11/11/18 [Rx] INSULIN ASPART (NovoLOG) [NovoLOG (formulary)] 0 unit SQ ACHS vial 11/11/18 [Rx] Pantoprazole [Protonix] 40 mg PO AC-BRKFST tablet. 11/11/18 [Rx] traZODone HCL [Desyrel] 300 mg PO HS #6 tab 11/11/18 [Rx] Follow up Appointment(s)/Referral(s): Derian Tim MD [STAFF PHYSICIAN] - 3 Weeks Narendra Izquierdo MD [Primary Care Provider] - 1-2 days [facility], [NON-STAFF] - [facility] [NON-STAFF] - As Needed (If ulceration is still open, schedule appointment in one week.) Laurent Slade MD [STAFF PHYSICIAN] - 1 Week Ambulatory/Diagnostic Orders: Basic Metabolic Panel [LAB.AMB] Time Frame: 3 Days, Location: None Selected Complete Blood Count w/diff [LAB.AMB] Time Frame: 3 Days, Location: None Selected Activity/Diet/Wound Care/Special Instructions: Patient is going to [facility] in [place] continue current heart healthy diet/diabetic diet Continue to monitor blood sugars before meals at bedtime and treat with NovoLog sliding scale Continue complete course of antibiotics until finished Repeat labs in 2-3 days Follow-up with primary care provider upon discharge Follow-up with oncology in 2-3 weeks upon discharge Discharge Disposition: TRANSFER TO SNF/ECF
--- NOTE | 2018-11-11 15:48 | PN ---
PROGRESS NOTE DATE OF SERVICE: 11/11/2018 REASON FOR FOLLOWUP: Klebsiella bacteremia secondary to urinary source with a complicated UTI. INTERVAL HISTORY: The patient is currently afebrile. Patient has been breathing comfortably. Patient denies having any chest pain or any cough. No nausea, no vomiting. No abdominal pain and no diarrhea. PHYSICAL EXAMINATION: Blood pressure is 133/60 with a pulse of 59, temperature 98. He is 100% on room air. General description is elderly male up in the chair in no distress. Respiratory system: Unlabored breathing. Clear to auscultation anteriorly. Heart: S1, S2. Regular rate and rhythm. Abdomen soft. LAB: No labs have been obtained today. DIAGNOSTIC IMPRESSION AND PLAN: Patient with Klebsiella bacteremia secondary to urinary source complicated urinary tract infection in a patient who did have bladder cancer with bilateral nephrostomy tubes. Blood culture with Klebsiella repeat has been negative. The patient finished therapy with oral Ceftin; Cipro could not be used because of drug interaction with his other medication, along with oral Diflucan. MMODL / IJN: [id number] /
--- NOTE | 2018-11-11 22:49 | P.PN ---
Subjective Progress Note Date: 11/11/18 The patient denied any new complaints today. He has some generalized weakness but states that he feels better. He states that he can walk to the bathroom an outside in the cord or without significant difficulty. He denied any fever/chills/nausea/vomiting. He feels that appetite is improved Objective - Vital Signs Vital signs: Vital Signs Temp 98.6 F 11/11/18 04:00 Pulse 59 L 11/11/18 12:00 Resp 16 11/11/18 15:24 BP 133/60 11/11/18 12:00 Pulse Ox 100 11/11/18 12:00 Intake & Output 11/11/18 11/11/18 11/12/18 06:59 18:59 06:59 Intake Total 75 770 Output Total 1675 1300 Balance -1600 -530 Weight 103.2 kg 103.2 kg Intake: Intake, IV Titration 75 50 Amount 0.9% NaCl with KCl 40 Meq 75 /l 1,000 ml @ 25 mls/hr IV .Q24H JAM Rx#: [id number] cefTRIAXone 2 gm In 50 Sodium Chloride 0.9% 50 ml @ 100 mls/hr IVPB Q24HR JAM Rx#:[id number] Oral 720 Output: Drainage 1675 Left Back 950 Right Back 725 Urine 1300 - Constitutional General appearance: Present: no acute distress - EENT Eyes: Present: EOMI ENT: Present: hearing grossly normal, normal oropharynx - Respiratory Respiratory: bilateral: CTA - Cardiovascular Rhythm: regular Heart sounds: normal: S1, S2 - Gastrointestinal General gastrointestinal: Present: normal bowel sounds, soft - Integumentary Integumentary: Present: normal - Neurologic Neurologic: Present: CNII-XII intact - Musculoskeletal Musculoskeletal Comment(s): b/l nephrostomy tubes - sites clean Musculoskeletal: Present: generalized weakness, strength equal bilaterally - Psychiatric Psychiatric Comment(s): diminished recall Psychiatric: Present: A&O x's 3 - Labs CBC & Chem 7: 11/10/18 05:03 11/10/18 05:03 Labs: Abnormal Lab Results - Last 24 Hours (Table) 11/11/18 11/11/18 11/11/18 Range/Units 06:46 07:05 11:32 POC Glucose (mg/dL) 69 L 72 L 115 H (75-99) mg/dL Microbiology - Last 24 Hours (Table) 11/05/18 11:50 Blood Culture - Final Blood No Growth after 144 hours Assessment and Plan (1) Malignant neoplasm of bladder Narrative/Plan: The patient has locally advanced bladder cancer. He has been evaluated at the [facility], where he had bilateral nephrostomy tubes placed. Preo perative chemotherapy has been recommended with the plan for definitive surgery subsequently. The patient has not been able to keep of his appointments, or start treatment due to multiple hospitalizations, including this one. It was discussed with the patient that we would have to hold off on starting chemotherapy detail his infection is adequately treated, and performance status is improved. The patient was quite irritable overall and frustrated, but expressed understanding eventually. Plan to start treatment once the patient has completed appropriate antibiotic therapy, as imaging performance status is adequate. Status: Acute Priority: High Code(s): C67.9 - MALIGNANT NEOPLASM OF BLADDER, UNSPECIFIED SNOMED Code(s): 912900528 (2) Gram-negative bacteremia Narrative/Plan: Patient is currently on IV antibiotics. Deferred to ID, and the admitting service asked to nature and duration of antibiotic therapy. Status: Acute Code(s): R78.81 - BACTEREMIA SNOMED Code(s): 158342865573 (3) Anemia aplastic aregenerative Narrative/Plan: No evidence of bleeding. Anemia appears to be due to renal insufficiency and bacteremia. Hemoglobin is still in a safe range. Status: Acute Code(s): D61.9 - APLASTIC ANEMIA, UNSPECIFIED SNOMED Code(s): 96183952 (4) Weakness Narrative/Plan: The patient has had multiple admissions recently and has become debilitated. The plan is for discharge to ECF for SAI. It was discussed with the patient that hopefully this will improve his performance status, while he is completing his antibiotics. It was also discussed that he usually would not be able to receive chemotherapy while still and ECF. This would have to start once he has been discharged Status: Acute Priority: High Code(s): R53.1 - WEAKNESS SNOMED Code(s): 49234049
== END 2018-11-11 16:15 | DRG 871 ==
LOC: EC 11:52 → 3SCARD 15:33
PROVIDERS: ADMIT Internal Medicine; ATTEND Internal Medicine
PROC: 0T25X0Z Change Drainage Device in Kidney, External Approach (ICD-10-PCS; 2018-11-04)
PROC: 0T9030Z Drainage of Right Kidney with Drainage Device, Percutaneous Approach (ICD-10-PCS; principal; 2018-11-06 17:28)
DX: A41.50 Gram-negative sepsis, unspecified (principal); G93.41 Metabolic encephalopathy; N13.6 Pyonephrosis; E87.1 Hypo-osmolality and hyponatremia; D61.9 Aplastic anemia, unspecified; L89.152 Pressure ulcer of sacral region, stage 2; E11.36 Type 2 diabetes mellitus with diabetic cataract; C67.9 Malignant neoplasm of bladder, unspecified; T83.022A Displacement of nephrostomy catheter, initial encounter; R31.9 Hematuria, unspecified; E87.6 Hypokalemia; K21.9 Gastro-esophageal reflux disease without esophagitis; E78.5 Hyperlipidemia, unspecified; I10 Essential (primary) hypertension; I25.2 Old myocardial infarction; R79.89 Other specified abnormal findings of blood chemistry; Z79.82 Long term (current) use of aspirin; Z79.4 Long term (current) use of insulin; Z79.1 Long term (current) use of non-steroidal anti-inflammatories (NSAID); Z79.899 Other long term (current) drug therapy; Z86.73 Personal history of transient ischemic attack (TIA), and cerebral infarction without residual deficits; Z90.49 Acquired absence of other specified parts of digestive tract; Z95.0 Presence of cardiac pacemaker; Z87.891 Personal history of nicotine dependence; Z98.890 Other specified postprocedural states
CPT/HCPCS: 36415; 50432; 50433; 71046; 80048; 80053; 81001; 83605; 84484; 85025; 85610; 85730; 87040; 87077; 87086; 87186; 87502; 93005; 96361; 96365; 99285